=== PATIENT | female | born 1960 | race Caucasian/White ===

== ENCOUNTER 2018-09-28 19:00 | Emergency (ER) | payer OTHER ==
[2018-09-28 19:43] VITALS: TEMP 98.2
[2018-09-28] MEDS ORDERED: SODIUM CHLORIDE 0.9% 1,000 ML IV STA (20:19)
[2018-09-28] MEDS ORDERED: ONDANSETRON 4 MG/2 ML VIAL IVP STA (20:19)
[2018-09-28 20:56] LABS: Basophils # (A) 0.1 k/uL (0-0.2); Basophils % (A) 0 %; Eosinophils # (A) 0.2 k/uL (0-0.7); Eosinophils % (A) 2 %; HCT 42.9 % (34.0-46.0); HGB 14.5 gm/dL (11.4-16.0); Lymphocytes # (A) 4.4 k/uL (1.0-4.8); Lymphocytes % (A) 31 %; MCH 30.3 pg (25.0-35.0); MCHC 33.8 g/dL (31.0-37.0); MCV 89.4 fL (80.0-100.0); Mean Platelet Volume 7.7; Monocytes # (A) 0.5 k/uL (0-1.0); Monocytes % (A) 4 %; Neutrophils # (A) 8.8 k/uL (1.3-7.7); Neutrophils % (A) 62 %; Platelet Count 369 k/uL (150-450); RBC 4.79 m/uL (3.80-5.40); RDW 13.7 % (11.5-15.5); WBC 14.2 k/uL (3.8-10.6)
[2018-09-28 21:10] LABS: ALT 33 U/L (9-52); AST 21 U/L (14-36); African American GFR (CKD) >90 (>60 ml/min/1.73 sqM); Albumin 5.1 g/dL (3.5-5.0); Alkaline Phosphatase 158 U/L (38-126); Anion Gap 12 mmol/L; Blood Urea Nitrogen 7 mg/dL (7-17); Calcium 10.3 mg/dL (8.4-10.2); Carbon Dioxide 23 mmol/L (22-30); Chloride 109 mmol/L (98-107); Glucose 114 mg/dL (74-99); Lipase 43 U/L (23-300); Magnesium 2.4 mg/dL (1.6-2.3); Potassium 3.6 mmol/L (3.5-5.1); Sodium 144 mmol/L (137-145); Total Bilirubin 0.5 mg/dL (0.2-1.3); Total Protein 8.6 g/dL (6.3-8.2)
[2018-09-28] MEDS ORDERED: SODIUM CHLORIDE 0.9% 1,000 ML IV ONE (21:22)
--- NOTE | 2018-09-28 21:27 | ED ---
General Adult HPI - General Chief complaint: Nausea/Vomiting/Diarrhea Stated complaint: VOMITING, CAN'T SLEEP OR EAT, X 1 DAY Time Seen by Provider: 09/28/18 20:18 Source: patient, RN notes reviewed, old records reviewed Mode of arrival: ambulatory Limitations: no limitations - History of Present Illness Initial comments: 58-year-old female presenting for evaluation of nausea vomiting diarrhea. She's had symptoms for the past 2 days. She's been unable to keep down any food, she has been able to tolerate some liquids. She's also had diarrhea over this course. Denies any significant abdominal pain. Denies dysuria or hematuria. Denies fever or chills. She states she has been unable to rest secondary to nausea and vomiting. No chronic medical history. - Related Data Home Medications Medication Instructions Recorded Confirmed Metoprolol Tartrate [Lopressor] 25 mg PO DAILY 09/28/18 09/28/18 amLODIPine [Norvasc] 5 mg PO DAILY 09/28/18 09/28/18 Previous Rx's Medication Instructions Recorded Ondansetron Odt [Zofran Odt] 4 mg PO Q8HR PRN #10 tab 09/28/18 Allergies Allergy/AdvReac Type Severity Reaction Status Date / Time No Known Allergies Allergy Verified 09/28/18 21:05 Review of Systems ROS Statement: Those systems with pertinent positive or pertinent negative responses have been documented in the HPI. ROS Other: All systems not noted in ROS Statement are negative. Past Medical History Past Medical History: Hypertension History of Any Multi-Drug Resistant Organisms: None Reported Past Surgical History: No Surgical Hx Reported Past Psychological History: No Psychological Hx Reported Smoking Status: Current every day smoker Past Alcohol Use History: None Reported Past Drug Use History: None Reported General Exam Limitations: no limitations General appearance: alert, in no apparent distress Head exam: Present: atraumatic, normocephalic Eye exam: Present: normal appearance, PERRL ENT exam: Present: mucous membranes dry Neck exam: Present: normal inspection. Absent: tenderness, meningismus Respiratory exam: Present: normal lung sounds bilaterally. Absent: respiratory distress, wheezes Cardiovascular Exam: Present: regular rate, normal rhythm GI/Abdominal exam: Present: soft. Absent: distended, tenderness, guarding, rebound Extremities exam: Present: normal inspection, normal capillary refill. Absent: pedal edema Neurological exam: Present: alert, oriented X3, CN II-XII intact. Absent: motor sensory deficit Psychiatric exam: Present: normal affect, normal mood Skin exam: Present: warm, dry, intact. Absent: cyanosis, diaphoretic Course Vital Signs 09/28/18 19:40 Temperature 98.2 F Pulse Rate 108 H Respiratory 18 Rate Blood Pressure 149/98 O2 Sat by Pulse 95 Oximetry EKG Findings - EKG Comments: EKG Findings:: EKG: Normal sinus rhythm, Q waves in the inferior leads age undetermined inferior infarct, rate 99, ME interval 1:30, QRS duration 88, QTC 462, no ST segment elevation. Medical Decision Making - Medical Decision Making 58 -year-old female presenting with nausea vomiting diarrhea. No pain. Patient is afebrile with stable vitals. Chest nontender abdomen. She has leukocytosis white count 14.2, she is some signs of hemoconcentration and electrolyte abnormalities. She is given 2 L of IV hydration. She is very eager for discharge, she does not want to stay for any further treatment or evaluation. She will return with worsening or changing symptoms. - Lab Data Result diagrams: 09/28/18 20:45 09/28/18 20:45 Lab Results 09/28/18 09/28/18 09/28/18 Range/Units 20:45 20:45 20:45 WBC 14.2 H (3.8-10.6) k/uL RBC 4.79 (3.80-5.40) m/uL Hgb 14.5 (11.4-16.0) gm/dL Hct 42.9 (34.0-46.0) % MCV 89.4 (80.0-100.0) fL MCH 30.3 (25.0-35.0) pg MCHC 33.8 (31.0-37.0) g/dL RDW 13.7 (11.5-15.5) % Plt Count 369 (150-450) k/uL Neutrophils % 62 % Lymphocytes % 31 % Monocytes % 4 % Eosinophils % 2 % Basophils % 0 % Neutrophils # 8.8 H (1.3-7.7) k/uL Lymphocytes # 4.4 (1.0-4.8) k/uL Monocytes # 0.5 (0-1.0) k/uL Eosinophils # 0.2 (0-0.7) k/uL Basophils # 0.1 (0-0.2) k/uL Sodium 144 (137-145) mmol/L Potassium 3.6 (3.5-5.1) mmol/L Chloride 109 H (98-107) mmol/L Carbon Dioxide 23 (22-30) mmol/L Anion Gap 12 mmol/L BUN 7 (7-17) mg/dL Creatinine 0.56 (0.52-1.04) mg/dL Est GFR (CKD-EPI)AfAm >90 (>60 ml/min/1.73 sqM) Est GFR (CKD-EPI)NonAf >90 (>60 ml/min/1.73 sqM) Glucose 114 H (74-99) mg/dL Calcium 10.3 H (8.4-10.2) mg/dL Magnesium 2.4 H (1.6-2.3) mg/dL Total Bilirubin 0.5 (0.2-1.3) mg/dL AST 21 (14-36) U/L ALT 33 (9-52) U/L Alkaline Phosphatase 158 H (38-126) U/L Troponin I <0.012 (0.000-0.034) ng/mL Total Protein 8.6 H (6.3-8.2) g/dL Albumin 5.1 H (3.5-5.0) g/dL Lipase 43 (23-300) U/L Disposition Clinical Impression: Dehydration, Nausea vomiting and diarrhea Disposition: HOME SELF-CARE Instructions (If sedation given, give patient instructions): Acute Nausea and Vomiting (ED) Prescriptions: Ondansetron Odt [Zofran Odt] 4 mg PO Q8HR PRN #10 tab PRN Reason: Vomiting Is patient prescribed a controlled substance at d/c from ED?: No Referrals: Myke Mcclure MD [Primary Care Provider] - 1-2 days Time of Disposition: 22:07
[2018-09-28] MEDS ORDERED: LORazepam 1 MG TAB PO STA (22:05)
[2018-09-28 22:20] VITALS: BP 141/72; PULSE 98; RESP 16
== END 2018-09-28 22:18 | disposition home or self-care (01) ==
LOC: EC 19:00
DX: E86.0 Dehydration (principal); R11.2 Nausea with vomiting, unspecified; R19.7 Diarrhea, unspecified; D72.829 Elevated white blood cell count, unspecified; I10 Essential (primary) hypertension; F17.200 Nicotine dependence, unspecified, uncomplicated; Z79.899 Other long term (current) drug therapy
CPT/HCPCS: 36415; 80053; 83690; 83735; 84484; 85025; 99284; 96374; 96361; J2405

== ENCOUNTER 2022-03-15 10:40 | Inpatient (IN) | payer OTHER ==
[~2022-03-15 10:40] MED LIST: HEPARIN SODIUM,PORCINE 10,000 UNIT in SODIUM CHLORIDE 0.9% 1,000 ML IRRIGATION PRN; HEPARIN SODIUM,PORCINE 2,500 UNIT in SODIUM CHLORIDE 0.9% 250 ML IRRIGATION PRN
[2022-03-15] MEDS ORDERED: ASPIRIN 325 MG TAB PO STA (11:06)
[2022-03-15] MEDS ORDERED: NITROGLYCERIN SL TABS 0.4 MG TAB SUBLINGUAL STA (11:06)
--- NOTE | 2022-03-15 11:09 | ED ---
General Adult HPI - General Chief complaint: Chest Pain Stated complaint: Chest pain Time Seen by Provider: 03/15/22 11:05 Source: patient, RN notes reviewed Mode of arrival: ambulatory Limitations: no limitations - History of Present Illness Initial comments: Patient is a pleasant 61-year-old female presenting to the emergency department with concern with chest discomfort. Onset of symptoms was around 1 AM. Discomfort is currently rated 8/10. Patient states discomfort feels like an ache. There is discomfort in the back as well. Patient has had some associated nausea and vomiting. Patient has felt sweaty. No dyspnea. No history of similar symptoms previously. - Related Data Home Medications Medication Instructions Recorded Confirmed Metoprolol Tartrate [Lopressor] 25 mg PO DAILY 09/28/18 09/28/18 amLODIPine [Norvasc] 5 mg PO DAILY 09/28/18 09/28/18 Previous Rx's Medication Instructions Recorded Ondansetron Odt [Zofran Odt] 4 mg PO Q8HR PRN #10 tab 09/28/18 Allergies Allergy/AdvReac Type Severity Reaction Status Date / Time No Known Allergies Allergy Verified 03/15/22 10:44 Review of Systems ROS Statement: Those systems with pertinent positive or pertinent negative responses have been documented in the HPI. ROS Other: All systems not noted in ROS Statement are negative. Constitutional: Denies: fever Eyes: Denies: eye pain ENT: Denies: ear pain Respiratory: Denies: cough, dyspnea Cardiovascular: Reports: as per HPI, chest pain Endocrine: Denies: fatigue Gastrointestinal: Denies: abdominal pain Genitourinary: Denies: dysuria Musculoskeletal: Reports: as per HPI Skin: Denies: rash Neurological: Denies: weakness Past Medical History Past Medical History: Hypertension History of Any Multi-Drug Resistant Organisms: None Reported Past Surgical History: No Surgical Hx Reported Past Psychological History: No Psychological Hx Reported Smoking Status: Current every day smoker Past Alcohol Use History: None Reported Past Drug Use History: None Reported General Exam Limitations: no limitations General appearance: alert, in no apparent distress Head exam: Present: normocephalic Eye exam: Present: normal appearance Neck exam: Present: normal inspection Respiratory exam: Present: normal lung sounds bilaterally Cardiovascular Exam: Present: regular rate, normal rhythm, normal heart sounds Expanded Peripheral pulses: 2+: Radial (R), Radial (L), Femoral (R), Femoral (L), Posterior Tibialis (R), Posterior Tibialis (L), Dorsalis Pedis (R), Dorsalis Pedis (L) GI/Abdominal exam: Present: soft. Absent: tenderness Extremities exam: Present: normal inspection. Absent: pedal edema, calf tenderness Back exam: Present: normal inspection Neurological exam: Present: alert Psychiatric exam: Present: normal affect, normal mood Skin exam: Present: normal color Course Vital Signs 03/15/22 10:42 Temperature 98 F Pulse Rate 99 Respiratory 22 Rate Blood Pressure 187/108 O2 Sat by Pulse 98 Oximetry - Reevaluation(s) Reevaluation #1: 03/15/22 11:13 Patient reevaluated and unchanged. Nitro being given. Blood pressure will be rechecked. Debby with cardiology is present. STEMI alert was previously called. EKG Findings - EKG Results: EKG: interpreted by GLADYS (Sinus rhythm 89. Left axis. Septal Q waves with ST elevation V2 through V6. Previous EKG reviewed dated 05/15/16), sinus rhythm Medical Decision Making - Medical Decision Making Case discussed with Dr. Mcgrath, who will admit covering hospital call. Patient has gone to [facility]. - Lab Data Result diagrams: 03/15/22 11:07 Lab Results 03/15/22 Range/Units 11:07 WBC 15.5 H (3.8-10.6) k/uL RBC 4.93 (3.80-5.40) m/uL Hgb 15.2 (11.4-16.0) gm/dL Hct 44.0 (34.0-46.0) % MCV 89.3 (80.0-100.0) fL MCH 30.8 (25.0-35.0) pg MCHC 34.5 (31.0-37.0) g/dL RDW 12.7 (11.5-15.5) % Plt Count 325 (150-450) k/uL MPV 8.1 Neutrophils % 87 % Lymphocytes % 9 % Monocytes % 2 % Eosinophils % 1 % Basophils % 0 % Neutrophils # 13.5 H (1.3-7.7) k/uL Lymphocytes # 1.4 (1.0-4.8) k/uL Monocytes # 0.3 (0-1.0) k/uL Eosinophils # 0.2 (0-0.7) k/uL Basophils # 0.0 (0-0.2) k/uL - Radiology Data Interpreted by me: Chest x-ray is rotated. No mediastinal widening. Critical Care Time Critical Care Time: Yes Total Critical Care Time: 20 Disposition Clinical Impression: ST elevation myocardial infarction (STEMI) Disposition: ADMITTED IP TO THIS HOSP Condition: Critical Is patient prescribed a controlled substance at d/c from ED?: No Referrals: None,Stated [Primary Care Provider] - 1-2 days Time of Disposition: 11:21
[2022-03-15 11:13] LABS: Basophils % (A) 0 %; Eosinophils # (A) 0.2 k/uL (0-0.7); Eosinophils % (A) 1 %; HGB 15.2 gm/dL (11.4-16.0); Lymphocytes # (A) 1.4 k/uL (1.0-4.8); Lymphocytes % (A) 9 %; MCH 30.8 pg (25.0-35.0); MCHC 34.5 g/dL (31.0-37.0); MCV 89.3 fL (80.0-100.0); Mean Platelet Volume 8.1; Monocytes # (A) 0.3 k/uL (0-1.0); Monocytes % (A) 2 %; Neutrophils # (A) 13.5 k/uL (1.3-7.7); Neutrophils % (A) 87 %; Platelet Count 325 k/uL (150-450); RBC 4.93 m/uL (3.80-5.40); RDW 12.7 % (11.5-15.5); WBC 15.5 k/uL (3.8-10.6)
[2022-03-15] MEDS ORDERED: HEPARIN SODIUM 1,000 UN/ML (10ML VL) IV PRN ×2 (11:16→14:05)
[2022-03-15] MEDS ORDERED: HEPARIN SODIUM 1,000 UN/ML (10ML VL) IV ONE ×2 (11:16→14:05)
[2022-03-15] MEDS ORDERED: ONDANSETRON 4 MG/2 ML VIAL ONE ×3 (11:22→14:27)
[2022-03-15 11:23] LABS: ALT 52 U/L (4-34); African American GFR (CKD) >90 (>60 ml/min/1.73 sqM); Albumin 5.3 g/dL (3.5-5.0); Anion Gap 11 mmol/L; Blood Urea Nitrogen 11 mg/dL (7-17); Calcium 9.4 mg/dL (8.4-10.2); Carbon Dioxide 28 mmol/L (22-30); Chloride 100 mmol/L (98-107); Glucose 169 mg/dL (74-99); Non-African American GFR(CKD) >90 (>60 ml/min/1.73 sqM); Sodium 139 mmol/L (137-145); Total Bilirubin 0.8 mg/dL (0.2-1.3); Total Protein 9.2 g/dL (6.3-8.2)
[2022-03-15 11:24] LABS: AST 176 U/L (14-36); Magnesium 1.9 mg/dL (1.6-2.3); Potassium 4.3 mmol/L (3.5-5.1)
[2022-03-15 11:25] LABS: Alkaline Phosphatase 148 U/L (38-126); INR 0.9 (<1.2); Partial Thromboplastin Time 24.1 sec (22.0-30.0); Prothrombin Time 9.5 sec (9.0-12.0)
[2022-03-15] MEDS ORDERED: SODIUM CHLORIDE 0.9% 1,000 ML IV ONE (11:25)
[2022-03-15] MEDS ORDERED: ONDANSETRON 4 MG/2 ML VIAL IVP ONE ×4 (11:25→14:30)
[2022-03-15] MEDS ORDERED: MIDAZOLAM 2 MG/2 ML VIAL IVP ONE (11:26)
--- NOTE | 2022-03-15 11:26 | XR ---
EXAMINATION TYPE: XR chest 1V portable DATE OF EXAM: 03/15/2022 COMPARISON: NONE HISTORY: Chest pain TECHNIQUE: Single frontal view of the chest is obtained. FINDINGS: There is no focal air space opacity, pleural effusion, or pneumothorax seen. The cardiac silhouette size is within normal limits. The osseous structures are intact. Heart size normal. No o vert failure. Minimal linear changes left lung base typical of atelectasis secondary to reduced inspi ration. Arthropathy of the shoulders. IMPRESSION: No acute process.
[2022-03-15] MEDS ORDERED: LIDOCAINE 1% INJ 10MG/ML (30 ML VIAL-PF) SQ ONE ×2 (11:27)
[2022-03-15] MEDS ORDERED: HEPARIN SOD,PORK IN 0.45% NACL 25,000 UNIT in 0.45% NACL 1 250ML.BAG IV SCH ×2 (11:30→14:15)
[2022-03-15] MEDS ORDERED: HEPARIN SODIUM 1,000 UN/ML (10ML VL) ONE (11:33)
[2022-03-15] MEDS ORDERED: TICAGRELOR 90 MG TAB ONE (11:33)
[2022-03-15] MEDS ORDERED: HEPARIN SODIUM 1,000 UN/ML (10ML VL) IVP ONE (11:34)
[2022-03-15] MEDS ORDERED: TICAGRELOR 90 MG TAB PO ONE (11:39)
--- NOTE | 2022-03-15 11:39 | P.CRDCN ---
History of Present Illness History of present illness: This is a 61 year old female with a past medical history of hypertension and chronic tobacco use. Does not follow with a car repairer. We are consulted for STEMI. She presents to the ER with chest discomfort. She states she was sleeping and woke up with chest discomfort around 1AM, it woke her out of her sleep. It radiated to her back. She had associated nausea and vomiting. Describes it as ache/pressure. She denied any shortness of breath, diaphoresis, lightheadedness, dizziness, syncope or near syncope. She came to the ER for evaluation and EKG revealed ST elevation in anterior leads and inferior leads. She was taken urgently to the operations label clerk. She denies any prior history of CAD, ME, stroke, diabetes. She is a current every day smoker. Family history includes father had an ME unknown age. Pressure was elevated on arrival 187/108. DIAGNOSTICS * EKG reveals sinus rhythm, heart rate [address] elevated in leads V2-V6, and II, II and aVF. * Chest xray no acute cardiopulmonary process * Laboratory reviewed, WBC 15.5 hemoglobin 15.2, platelets 325, sodium 139, potassium 4.3, BUN 11, supreme 0.5, magnesium 1.9, AST 176, ALT 52 REVIEW OF SYSTEMS At the time of my exam: CONSTITUTIONAL: Denies fever or chills. CARDIOVASCULAR: + chest pain, Denies shortness of breath, orthopnea, PND or palpitations. RESPIRATORY: Denies cough. GASTROINTESTINAL: Denies abdominal pain, diarrhea, constipation, +nausea +vomiting. MUSCULOSKELETAL: Denies myalgias. NEUROLOGIC: Denies numbness, tingling, headacbe or weakness. ENDOCRINE: Denies fatigue, weight change, polydipsia or polyurina. GENITOURINARY: Denies burning, hematuria or urgency with micturation. HEMATOLOGIC: Denies history of anemia or bleeding. PHYSICAL EXAMINATION Vitals reviewed CONSTITUTIONAL: No apparent distress. HEENT: Head is normocephalic. Pupils are equal, round. Sclerae anicteric. Mucous membranes of the mouth are moist. No JVD. No carotid bruit. CHEST EXAMINATION: Lungs are clear to auscultation. HEART EXAMINATION: Regular rate and rhythm. S1, S2 heard. No murmurs, gallops or rub. ABDOMEN: Soft, nontender. EXTREMITIES: no lower extremity edema NEUROLOGIC EXAMINATION: Patient is awake, alert and oriented x3. ASSESSMENT STEMI History of hypertension Chronic tobacco use PLAN Patient urgently taken to operations label clerk for cardiac catheterization with Dr. Katz I have discussed the risks, benefits and alternative therapies for the above- mentioned procedure and for both sedation/analgesia as well as necessary blood product administration, if indicated, as they pertain to this patient. The patient has indicated understanding and acceptance of the risks and procedures discussed. Questions have been answered appropriately and she is agreeable to move forward with the above-stated procedure. Obtain 2D echocardiogram and doppler study to assess cardiac structure and function. Further recommendations based on above findings and patient course Nurse practitioner note has been reviewed by physician. Signing provider agrees with the documented findings, assessment, and plan of care. Past Medical History Past Medical History: Hypertension History of Any Multi-Drug Resistant Organisms: None Reported Past Surgical History: No Surgical Hx Reported Past Psychological History: No Psychological Hx Reported Smoking Status: Current every day smoker Past Alcohol Use History: None Reported Past Drug Use History: None Reported Medications and Allergies Home Medications Medication Instructions Recorded Confirmed Type Metoprolol Tartrate [Lopressor] 25 mg PO DAILY 09/28/18 09/28/18 History Ondansetron Odt [Zofran Odt] 4 mg PO Q8HR PRN #10 tab 09/28/18 Rx amLODIPine [Norvasc] 5 mg PO DAILY 09/28/18 09/28/18 History Allergies Allergy/AdvReac Type Severity Reaction Status Date / Time No Known Allergies Allergy Verified 03/15/22 10:44 Physical Exam Vitals: Vital Signs Temp Pulse Resp BP Pulse Ox 03/15/22 10:42 98 F 99 22 187/108 98 Intake and Output 03/14/22 03/15/22 03/15/22 22:59 06:59 14:59 Other: Weight 72.575 kg Results 03/15/22 11:07 03/15/22 11:07 Current Medications Generic Name Dose Route Start Last Admin Trade Name Freq PRN Reason Stop Dose Admin Nitroglycerin 0.4 mg 03/15/22 11:06 Nitroglycerin Sl Tabs 0.4 Mg Tab SUBLINGUAL Q5M PRN Chest Pain Intake and Output 03/14/22 03/15/22 03/15/22 22:59 06:59 14:59 Other: Weight 72.575 kg Patient Weight 03/16/22 06:59 Weight 72.575 kg
[2022-03-15] MEDS ORDERED: FUROSEMIDE 10 MG/ML 4 ML VIAL IVP ONE (11:50)
[2022-03-15] MEDS ORDERED: NITROGLYCERIN 1000MCG/10ML SYRINGE INTRAARTER ONE (11:51)
[2022-03-15] MEDS ORDERED: MORPHINE SULFATE 4 MG/ML SYRINGE ONE (11:52)
[2022-03-15] MEDS ORDERED: MORPHINE SULFATE 4 MG/ML SYRINGE IVP ONE ×2 (11:53→11:58)
[2022-03-15] MEDS ORDERED: FUROSEMIDE 10 MG/ML 4 ML VIAL ONE (11:54)
[2022-03-15] MEDS ORDERED: IOPAMIDOL-300 100ML BTL INJ ONE (12:03)
[2022-03-15] MEDS ORDERED: IOPAMIDOL-370 100ML BTL INJ ONE ×2 (12:03→14:46)
[2022-03-15] MEDS ORDERED: ATROPINE SULFATE 0.1 MG/ML 10ML SYRINGE IV PRN (12:12)
[2022-03-15] MEDS ORDERED: RX INFO: IV CONTRAST WAS GIVEN 1 EACH MISC MISCELLANE PRN ×2 (12:12→14:49)
[2022-03-15] MEDS ORDERED: MAG HYDROX/AL HYDROX/SIMETH 30 ML CUP PO PRN (12:12)
[2022-03-15] MEDS ORDERED: ZOLPIDEM 5 MG TAB PO PRN (12:12)
[2022-03-15] MEDS ORDERED: HYDROmorphone 0.5 MG/0.5 ML SYRINGE IVP ONE (12:14)
[2022-03-15] MEDS ORDERED: SODIUM CHLORIDE 0.9% 1,000 ML in EMPTY BAG 1 BAG IV SCH (12:15)
[2022-03-15 12:33] LABS: Glucose,Whole Blood 165 mg/dL (70-110)
[2022-03-15] MEDS: NITROGLYCERIN SL TABS 0.4 MG TAB SUBLINGUAL PRN ×2 (13:30→13:35)
[2022-03-15] MEDS: NITROGLYCERIN-D5W PMX 50 MG in DEXTROSE/WATER 1 250ML.BAG IV SCH (14:03)
--- NOTE | 2022-03-15 14:08 | P.HPIM ---
History of Present Illness H&P Date: 03/15/22 Chief Complaint: Chest/Back pain 61-year-old woman with a history of tobacco abuse, hypertension presented with back/chest discomfort. She describes a pressure as burning in nature and very intense. She has never had pain like this before. She has never had a heart attack before. She does not follow with a physician. She denies anginal symptoms. She denies fevers, chills, nausea, vomiting, palpitations, syncope, presyncope, cough, dyspnea, abdominal pain, constipation, diarrhea, dysuria, dyschezia, numbness/weakness of extremities. In the emergency room, patient was afebrile, 187/108, 99, 98% on room air. CBC showed leukocytosis to 15.5, otherwise unremarkable. Chemistries are unremarkable. Liver function tests show an AST of 176, ALT of 52, alkaline phos phatase of 148, total protein 9.2, albumin 5.3. Troponin was 10.9. Coags are unremarkable. EKG showed ST elevations in the septal leads with lateral reciprocal depression concerning for LAD occlusion. Chest x-ray did not show any acute process. Cardiology was consulted as well as STEMI code activated, patient taken to the Executive Legal Secretary and had drug alluding stent placed to the LAD with noted mild disease in the RCA. Patient was seen and examined by any following left heart catheterization continue to complain about back/chest pain similar to prior to the procedure. She reported improvement following the procedure and then return of her pain. Repeat EKG demonstrated ST elevations in septal leads with lateral reciprocal depression, as expected. Patient was given 2 sublingual nitroglycerin with no improvement in her pain, subsequent started on a nitroglycerin drip. All Systems reviewed and pertinent positives and negatives noted in HPI, all other symptoms are negative Gen: in no apparent distress, resting comfortably in bed Eyes: PERRL, no scleral injection or icterus HENT: normocephalic, atraumatic, good hearing acuity, moist mucous membranes Neck: no tracheal deviation, full range of motion Resp: good air exchange, breathing comfortably with no accessory muscle use, no tactile fremitus, clear to auscultation bilaterally CVS: good distal perfusion x 4, no pitting edema, regular rate and rhythm without murmurs GI: soft, NTTP, ND, no hepatosplenomegaly : no suprapubic tenderness, no CVAT, joseph catheter not present MSK: no clubbing, no cyanosis, no noted contractures of extremities Skin: no noted rashes, petechiae; temperature of skin is appropriate Neuro: moving all extremities without signs of weakness, CN II-XII intact Psych: cooperative, euthymic mood, insight and judgment intact Labs and imaging reviewed as above Assessment/plan: STEMI -Admit to inpatient, telemetry -Cardiology consult -Aspirin, Plavix -Statin -Beta tali -Patient is on nitro drip -TSH, A1c, lipid panel -Echocardiogram Hypertension Tobacco abuse -Home medications reviewed and reconciled -Cessation counseling advised -We'll require PCP referral on discharge with follow-up Patient is full code Past Medical History Past Medical History: Hypertension History of Any Multi-Drug Resistant Organisms: None Reported Past Surgical History: No Surgical Hx Reported Past Psychological History: No Psychological Hx Reported Smoking Status: Current every day smoker Past Alcohol Use History: None Reported Past Drug Use History: None Reported Medications and Allergies Home Medications Medication Instructions Recorded Confirmed Type Metoprolol Tartrate [Lopressor] 25 mg PO DAILY 09/28/18 09/28/18 History Ondansetron Odt [Zofran Odt] 4 mg PO Q8HR PRN #10 tab 09/28/18 Rx amLODIPine [Norvasc] 5 mg PO DAILY 09/28/18 09/28/18 History Allergies Allergy/AdvReac Type Severity Reaction Status Date / Time No Known Allergies Allergy Verified 03/15/22 10:44 Physical Exam Osteopathic Statement: *. No significant issues noted on an osteopathic structural exam other than those noted in the History and Physical/Consult. Vitals: Vital Signs Temp Pulse Resp BP Pulse Ox 03/15/22 12:45 98 8 L 172/118 94 L 03/15/22 12:31 102 H 14 174/116 03/15/22 10:42 98 F 99 22 187/108 98 Intake and Output 03/14/22 03/15/22 03/15/22 22:59 06:59 14:59 Intake Total 20 Balance 20 Intake: IV 20 Invasive Line 1 10 Invasive Line 2 10 Other: Weight 72.575 kg Results CBC & Chem 7: 03/15/22 11:07 03/15/22 11:07 Labs: Abnormal Lab Results - Last 24 Hours (Table) 03/15/22 03/15/22 03/15/22 Range/Units 11:07 11:07 11:07 WBC 15.5 H (3.8-10.6) k/uL Neutrophils # 13.5 H (1.3-7.7) k/uL Creatinine 0.50 L (0.52-1.04) mg/dL Glucose 169 H (74-99) mg/dL POC Glucose (mg/dL) (70-110) mg/dL AST 176 H (14-36) U/L ALT 52 H (4-34) U/L Alkaline Phosphatase 148 H (38-126) U/L Troponin I 10.900 H* (0.000-0.034) ng/mL Total Protein 9.2 H (6.3-8.2) g/dL Albumin 5.3 H (3.5-5.0) g/dL 03/15/22 Range/Units 12:30 WBC (3.8-10.6) k/uL Neutrophils # (1.3-7.7) k/uL Creatinine (0.52-1.04) mg/dL Glucose (74-99) mg/dL POC Glucose (mg/dL) 165 H (70-110) mg/dL AST (14-36) U/L ALT (4-34) U/L Alkaline Phosphatase (38-126) U/L Troponin I (0.000-0.034) ng/mL Total Protein (6.3-8.2) g/dL Albumin (3.5-5.0) g/dL
[2022-03-15] MEDS ORDERED: IV FLUID CONTINUATION 500 ML IV ONE (14:33)
[2022-03-15] MEDS ORDERED: VERAPAMIL 2.5 MG/ML 2 ML AMP ONE (14:35)
[2022-03-15] MEDS ORDERED: fentaNYL (PF) 50 MCG/ML 2 ML AMP ONE (14:36)
[2022-03-15] MEDS ORDERED: MIDAZOLAM 2 MG/2 ML VIAL IV ONE (14:37)
[2022-03-15] MEDS ORDERED: fentaNYL (PF) 50 MCG/ML 2 ML AMP IV ONE (14:37)
[2022-03-15] MEDS ORDERED: LIDOCAINE 1% INJ 10MG/ML (5 ML VIAL-PF) SQ ONE (14:39)
[2022-03-15] MEDS ORDERED: VERAPAMIL SYRINGE (5 MG/10 ML) INTRAARTER ONE (14:40)
[2022-03-15 15:06] VITALS: BMI 29.2
[2022-03-15] MEDS ORDERED: MORPHINE SULFATE 4 MG/ML SYRINGE IVP PRN (16:06)
[2022-03-15] MEDS: HYDROcodone/APAP 5-325MG 1 EACH TAB PO PRN ×2 (16:29→21:41)
[2022-03-15] MEDS: ONDANSETRON 4 MG/2 ML VIAL IVP PRN (16:36)
[2022-03-15] MEDS: MORPHINE SULFATE 2 MG/ML SYRINGE IVP PRN ×2 (17:14→20:26)
--- NOTE | 2022-03-15 18:44 | P.PCN ---
Date of Procedure: 03/15/22 Operative Findings: CARDIAC CATHETERIZATION AND PERCUTANEOUS CORONARY INTERVENTION PERFORMING PHYSICIAN: Jose Juan Katz MD, [facility] PROCEDURE PERFORMED: 1. Selective right and left coronary angiogram 2. Left heart catheterization 3. Successful stenting of mid LAD using 3.0 x 23 mm Xience ALICIA which with an excellent angiographic results 4. Selective right common femoral artery angiogram. Ultrasound-guided access of the right common femoral artery INDICATION: Anterior STEMI COMPLICATION: None APPROACH: Right common femoral artery LEVEL OF SEDATION: Moderate with the sedation time off 35 minutes PROCEDURE DESCRIPTION: After obtaining an informed consent the patient was brought to the cardiac laboratory tester. The right common femoral artery was cannulated using micropuncture technique, the micropuncture wire passed easily then I placed a 6-St Helenian sheath at the right common femoral artery. The right common femoral artery was cannulated using ultrasound guidance. Selective right and left coronary angiogram was performed using JR4 and JL4 catheters. Left heart catheterization was performed using 6-St Helenian pigtail catheter. After that I did intervene on the LAD. After that I did selective right common femoral artery angiogram. The procedure was completed without any complication SELECTIVE CORONARY ANGIOGRAM: The right coronary artery: Large caliber vessel and a dominant vessel. The RCA is diffusely diseased up to about 50% on tubular lesion in the midportion. Left main: Has mild disease only. Bifurcates into a LCx and LAD The left circumflex: Large caliber vessel nondominant vessel. The LCx appears to have mild disease only. It gives rise into a large OM branch which appeared to be angiographically normal. The left anterior descending artery: Large caliber vessel. The proximal LAD appeared to have mild disease only. The mid LAD after the bifurcation of a large septal alarm field technician is 100% occluded. The LAD proximally gives rise into a large diagonal branch which has tight lesion appeared to be in the range of 80%. HEMODYNAMICS: The LVEDP was about 20 mmHg was no significant gradient across aortic valve PCI OF THE LAD: Anticoagulation was initiated using heparin with continuous ACT monitoring. I did engage the left main using JL4 guiding catheter. I did cross the acute total occlusion of the LAD using a whisper wire. Subsequently I did balloon angioplasty initially using 2.5 mm balloon. After that I did deploy 3.0 x 23 mm stent where the stent was positioned under fluoroscopy guidance and deployed under its nominal pressure. A postoperative the stent using 3.5 mm noncompliant balloon. The final angiogram showed good angiographic results and the procedure was completed without any complications CONCLUSION: Acute anterior ST patient myocardial infarction Acute total occlusion of the mid LAD. Severe disease involving the first diago nal branch of the LAD which is a large reamer vessel. I did successful stenting of the LAD. Intermediate disease involving the mid RCA Elevated left-sided filling pressure POSTPROCEDURE MANAGEMENT: #1 dual antiplatelet therapy aspirin and Brilinta for 12 month #2 aggressive cholesterol control #3 consider medical treatment for the diagonal branch unless the patient remains symptomatic
--- NOTE | 2022-03-15 18:48 | P.PCN ---
Date of Procedure: 03/15/22 Operative Findings: CARDIAC CATHETERIZATION PERFORMING PHYSICIAN: Jose Juan Katz MD, RPVI PROCEDURE PERFORMED: 1. Selective left coronary angiogram INDICATION: This is a 61-year-old female patient was seen earlier today for acute anterior ST elevation myocardial infarction and she underwent an emergent heart catheterization and stenting of the LAD. Her symptoms have resolved completely. Because she started experiencing chest discomfort on the floor associated with ST segment deviation she was brought to cardiac laundry laborer for second look. COMPLICATION: None APPROACH: Right radial artery LEVEL OF SEDATION: Moderate with a sedation length of 12 minutes PROCEDURE DESCRIPTION: After obtaining an informed consent, the patient was brought to cardiac laundry laborer. Local anesthesia was performed using lidocaine subcutaneously. The right radial artery was cannulated using Seldinger technique, the guidewire passed easily, following that we advanced a 5-Indian sheath dilator assembly, the wire and dilator were removed and sheath was flushed. Following that, 2 mg of verapamil along with 5000 unit heparin were given. Selective left coronary angiogram using a 6-Indian JR4 and JL 3.5 catheters. The procedure was completed there was no complication. SELECTIVE CORONARY ANGIOGRAM: Left main: Has mild disease only. The left circumflex: Appears to have mild disease only. The left anterior descending artery: The stent in the mid LAD appeared to be patent. There is severe disease involving the large first diagonal branch. And there is also sluggish flow in the second diagonal branch in the middle of the stent. CONCLUSION: 1. Patent stent in the mid left anterior descending artery 2. Severe disease involving the first diagonal branch POSTPROCEDURE MANAGEMENT: STEVAN dual antiplatelet therapy and aggressive cholesterol control and risk factors modification
[2022-03-15] MEDS: METOPROLOL TARTRATE 25 MG TAB PO SCH (20:26)
[2022-03-15] MEDS: TICAGRELOR 90 MG TAB PO SCH (20:26)
[2022-03-15] MEDS ORDERED: ATORVASTATIN 80 MG TAB PO SCH (21:00)
[2022-03-16] MEDS: ONDANSETRON 4 MG/2 ML VIAL IVP PRN ×3 (00:45→17:02)
[2022-03-16 06:19] LABS: Basophils # (A) 0.1 k/uL (0-0.2); Basophils % (A) 0 %; Eosinophils % (A) 0 %; HCT 42.1 % (34.0-46.0); HGB 14.7 gm/dL (11.4-16.0); Lymphocytes # (A) 2.1 k/uL (1.0-4.8); Lymphocytes % (A) 12 %; MCH 31.5 pg (25.0-35.0); MCHC 34.8 g/dL (31.0-37.0); MCV 90.6 fL (80.0-100.0); Mean Platelet Volume 8.3; Monocytes # (A) 0.7 k/uL (0-1.0); Monocytes % (A) 4 %; Neutrophils # (A) 13.7 k/uL (1.3-7.7); Neutrophils % (A) 82 %; Platelet Count 274 k/uL (150-450); RBC 4.65 m/uL (3.80-5.40); RDW 13.3 % (11.5-15.5); WBC 16.7 k/uL (3.8-10.6)
[2022-03-16 06:21] LABS: Prothrombin Time 10.2 sec (9.0-12.0)
--- NOTE | 2022-03-16 07:22 | P.PN ---
Subjective Progress Note Date: 03/16/22 Principal diagnosis: Acute coronary syndrome The patient is a 61-year-old female patient with a smoking and hypertension and dyslipidemia who presented to the hospital with chest discomfort and was diagnosed with acute inferior ST elevation myocardial infarction. She underwent an emergent heart catheterization and that revealed occluded LAD in the midportion. She underwent successful stenting of the LAD with a good angiographic results and without complication from initially right groin approach. Subsequently the patient started having chest discomfort again after she came into the intensive care unit so she was brought back to the cardiac laborer car [facility] and underwent another angiogram which showed patent stent in the LAD was subtotally occluded diagonal which was treated medically. March 162021 The patient was seen this morning. She is asymptomatic be choosing with currently stable. The right groin and right radial site of soft and nontender and with no bruises. She continues to be on dual antiplatelet therapy and high intensity statin. She is also on beta tali. Liver function tests elevated. Echo is pending. Objective - Vital Signs Vital signs: Vital Signs Temp 99.1 F 03/16/22 04:00 Pulse 100 03/16/22 07:00 Resp 17 03/16/22 07:00 BP 123/79 03/16/22 07:00 Pulse Ox 93 L 03/16/22 07:00 FiO2 Intake & Output 03/15/22 03/16/22 03/16/22 18:59 06:59 18:59 Intake Total 828.150 770 Output Total 750 600 100 Balance 78.150 170 -100 Weight 72.575 kg 71.9 kg Intake: IV 577.5 770 Invasive Line 1 20 10 Invasive Line 2 20 10 Sodium Chloride 0.9% 1, 487.5 750 000 ml In Empty Bag 1 bag @ 75 mls/hr IV .[id number] [facility] Rx#:[id number] Intake, IV Titration 10.650 Amount Nitroglycerin-D5w Pmx 50 10.650 mg In Dextrose/Water 1 250ml.bag @ 5 MCG/MIN 1.5 mls/hr IV .Q24H [facility] Rx#: [id number] Oral 240 Output: Urine 750 600 100 Emesis 0 Other: Voiding Method External Catheter External Catheter # Bowel Movements 0 - Constitutional General appearance: Present: no acute distress - Respiratory Respiratory: bilateral: CTA - Cardiovascular Rhythm: regular - Labs CBC & Chem 7: 03/16/22 05:36 12/09/22 17:43 Labs: Abnormal Lab Results - Last 24 Hours (Table) 03/15/22 03/15/22 03/15/22 Range/Units 11:07 11:07 11:07 WBC 15.5 H (3.8-10.6) k/uL Neutrophils # 13.5 H (1.3-7.7) k/uL D-Dimer (<0.60) mg/L FEU Creatinine 0.50 L (0.52-1.04) mg/dL Glucose 169 H (74-99) mg/dL POC Glucose (mg/dL) (70-110) mg/dL AST 176 H (14-36) U/L ALT 52 H (4-34) U/L Alkaline Phosphatase 148 H (38-126) U/L Troponin I 10.900 H* (0.000-0.034) ng/mL Total Protein 9.2 H (6.3-8.2) g/dL Albumin 5.3 H (3.5-5.0) g/dL 03/15/22 03/15/22 03/16/22 Range/Units 11:13 12:30 05:36 WBC 16.7 H (3.8-10.6) k/uL Neutrophils # 13.7 H (1.3-7.7) k/uL D-Dimer 4.15 H (<0.60) mg/L FEU Creatinine (0.52-1.04) mg/dL Glucose (74-99) mg/dL POC Glucose (mg/dL) 165 H (70-110) mg/dL AST (14-36) U/L ALT (4-34) U/L Alkaline Phosphatase (38-126) U/L Troponin I (0.000-0.034) ng/mL Total Protein (6.3-8.2) g/dL Albumin (3.5-5.0) g/dL Assessment and Plan Assessment: Assessment #[address] elevation myocardial infarction #2 multiple comorbidities including hypertension and dyslipidemia and smoking Plan #1 continue the current medical regimen including dual antiplatelet therapy #2 decrease the dose of Lipitor 40 mg in the light of elevated liver function test #3 continue beta tali #4 start the patient on PHILIP inhibitor #5 follow-up on the echocardiogram #6 the patient can be transferred out of the intensive care unit
[2022-03-16 07:58] LABS: ALT 100 U/L (4-34); AST 491 U/L (14-36); African American GFR (CKD) >90 (>60 ml/min/1.73 sqM); Albumin 4.5 g/dL (3.5-5.0); Alkaline Phosphatase 124 U/L (38-126); Anion Gap 10 mmol/L; Blood Urea Nitrogen 12 mg/dL (7-17); Calcium 9.4 mg/dL (8.4-10.2); Carbon Dioxide 25 mmol/L (22-30); Chloride 106 mmol/L (98-107); Glucose 154 mg/dL (74-99); Non-African American GFR(CKD) >90 (>60 ml/min/1.73 sqM); Potassium 3.4 mmol/L (3.5-5.1); Sodium 141 mmol/L (137-145); Total Bilirubin 0.8 mg/dL (0.2-1.3); Total Protein 7.7 g/dL (6.3-8.2)
[2022-03-16] MEDS: HYDROcodone/APAP 5-325MG 1 EACH TAB PO PRN ×2 (09:09→20:20)
[2022-03-16] MEDS: ASPIRIN 81 MG PO SCH (09:10)
[2022-03-16] MEDS: amLODIPine 5 MG TAB PO SCH (09:10)
[2022-03-16] MEDS: TICAGRELOR 90 MG TAB PO SCH ×2 (09:10→20:20)
[2022-03-16] MEDS: METOPROLOL TARTRATE 25 MG TAB PO SCH ×2 (09:10→20:20)
[2022-03-16] MEDS ORDERED: POTASSIUM CHLORIDE ER 20 MEQ TAB.ER PO STA (09:47)
--- NOTE | 2022-03-16 09:55 | CA ---
Transthoracic Echo Report Name: Bere Whaley Age: 61 Gender: F : 1960 Exam Date: 03/15/2022 15:51 Exam Location: [facility] Ht (in): 62 Wt (lb): 160 Ordering Physician: Betsy Richard Attending/Referring Phys: Art Director Molly Garg RDCS Procedure CPT: Indications: stemi Cardiac Hx: Technical Quality: Technically difficult study Contrast 1: Lumason Total Dose (mL): 4 Contrast 2: Total Dose (mL): MEASUREMENTS (Male / Female) Normal Values 2D ECHO LV Diastolic Diameter PLAX 4.2 cm 4.2 - 5.9 / 3.9 - 5.3 cm LV Systolic Diameter PLAX 2.8 cm IVS Diastolic Thickness 1.3 cm 0.6 - 1.0 / 0.6 - 0.9 cm LVPW Diastolic Thickness 1.3 cm 0.6 - 1.0 / 0.6 - 0.9 cm LV Relative Wall Thickness 0.6 RV Internal Dim ED PLAX 2.6 cm LA Volume 29.9 cm??? 18 - 58 / 22 - 52 cm??? M-MODE Aortic Root Diameter MM 2.7 cm LA Systolic Diameter MM 2.9 cm LA Ao Ratio MM 1.1 AV Cusp Separation MM 1.7 cm DOPPLER AV Peak Velocity 126.7 cm/s AV Peak Gradient 6.4 mmHg AV Mean Velocity 94.8 cm/s AV Mean Gradient 3.8 mmHg AV Velocity Time Integral 23.6 cm LVOT Peak Velocity 127.3 cm/s LVOT Peak Gradient 6.5 mmHg MV Area PHT 4.0 cm??? Mitral E Point Velocity 32.8 cm/s Mitral A Point Velocity 102.0 cm/s Mitral E to A Ratio 0.3 MV Deceleration Time 189.7 ms MV E' Velocity 5.1 cm/s Mitral E to MV E' Ratio 6.4 TR Peak Velocity 241.7 cm/s TR Peak Gradient 23.4 mmHg Right Ventricular Systolic Press 27.8 mmHg FINDINGS Left Ventricle Moderately increased left ventricular wall thickness. Pilger hypokinetic. Apical anterior, apical inferior and apical septum hypokinesis. Decreased LV systolic function, EF estimated at 25-30 %. Right Ventricle Normal right ventricular size and function. Right ventricular systolic pressure within normal limits. Right Atrium Normal right atrial size. Left Atrium Normal left atrial size. Mitral Valve Structurally normal mitral valve. No mitral stenosis, regurgitation or prolapse. Aortic Valve No aortic valve stenosis or regurgitation. Tricuspid Valve Structurally normal tricuspid valve. Mild tricuspid regurgitation. Pulmonic Valve Trace pulmonic regurgitation. Pericardium No pericardial effusion. Aorta Normal size aortic root and proximal ascending aorta. CONCLUSIONS Severe LV dysfunction with EF between 25-30% Previewed by: Dr. Jose Juan Katz MD (Electronically Signed) Final Date: 16 March 2022 09:54
--- NOTE | 2022-03-16 12:41 | P.PN ---
Subjective Progress Note Date: 03/16/22 Pt is doing better, just mild back pain, no further chest discomfort. Has been up and walking around. Stepped down from ICU. Echo read is pending. Gen: in no apparent distress, resting comfortably in bed Eyes: PERRL, no scleral injection or icterus HENT: normocephalic, atraumatic, good hearing acuity, moist mucous membranes Neck: no tracheal deviation, full range of motion Resp: good air exchange, breathing comfortably with no accessory muscle use, no tactile fremitus, clear to auscultation bilaterally CVS: good distal perfusion x 4, no pitting edema, regular rate and rhythm without murmurs GI: soft, NTTP, ND, no hepatosplenomegaly : no suprapubic tenderness, no CVAT, joseph catheter not present MSK: no clubbing, no cyanosis, no noted contractures of extremities Skin: no noted rashes, petechiae; temperature of skin is appropriate Neuro: moving all extremities without signs of weakness, CN II-XII intact Psych: cooperative, euthymic mood, insight and judgment intact Labs and imaging reviewed as above Assessment/plan: STEMI -Admit to inpatient, telemetry -Cardiology consult -Aspirin, Plavix -Statin -Beta tali -Patient is on nitro drip -TSH, A1c, lipid panel -Echocardiogram, pending Hypertension Tobacco abuse -Home medications reviewed and reconciled -Cessation counseling advised -We'll require PCP referral on discharge with follow-up Patient is full code Objective - Vital Signs Vital signs: Vital Signs Temp 99.5 F 03/16/22 08:00 Pulse 98 03/16/22 09:00 Resp 12 03/16/22 09:00 BP 128/85 03/16/22 09:00 Pulse Ox 95 03/16/22 09:00 FiO2 Intake & Output 03/15/22 03/16/22 03/16/22 18:59 06:59 18:59 Intake Total 828.150 770 Output Total 750 600 200 Balance 78.150 170 -200 Weight 72.575 kg 71.9 kg Intake: IV 577.5 770 Invasive Line 1 20 10 Invasive Line 2 20 10 Sodium Chloride 0.9% 1, 487.5 750 000 ml In Empty Bag 1 bag @ 75 mls/hr IV .[id number] [facility] Rx#:[id number] Intake, IV Titration 10.650 Amount Nitroglycerin-D5w Pmx 50 10.650 mg In Dextrose/Water 1 250ml.bag @ 5 MCG/MIN 1.5 mls/hr IV .Q24H [facility] Rx#: [id number] Oral 240 Output: Urine 750 600 200 Emesis 0 Other: Voiding Method External Catheter External Catheter External Catheter # Voids 1 # Bowel Movements 0 - Labs CBC & Chem 7: 03/16/22 05:36 03/16/22 05:36 Labs: Abnormal Lab Results - Last 24 Hours (Table) 03/15/22 03/16/22 03/16/22 Range/Units 11:13 05:36 05:36 WBC 16.7 H (3.8-10.6) k/uL Neutrophils # 13.7 H (1.3-7.7) k/uL D-Dimer 4.15 H (<0.60) mg/L FEU Potassium 3.4 L (3.5-5.1) mmol/L Glucose 154 H (74-99) mg/dL AST 491 H (14-36) U/L ALT 100 H (4-34) U/L
[2022-03-16] MEDS ORDERED: ATORVASTATIN 40 MG TAB PO SCH (21:00)
[2022-03-16 22:57] VITALS: RESP 18
[2022-03-17] MEDS: ONDANSETRON 4 MG/2 ML VIAL IVP PRN ×2 (00:32→09:16)
--- NOTE | 2022-03-17 05:32 | P.PN ---
Subjective Progress Note Date: 03/17/22 Principal diagnosis: Acute coronary syndrome The patient is a 61-year-old female patient with a smoking and hypertension and dyslipidemia who presented to the hospital with chest discomfort and was diagnosed with acute inferior ST elevation myocardial infarction. She underwent an emergent heart catheterization and that revealed occluded LAD in the midportion. She underwent successful stenting of the LAD with a good angiographic results and without complication from initially right groin approach. Subsequently the patient started having chest discomfort again after she came into the intensive care unit so she was brought back to the cardiac laborer chemical processing and underwent another angiogram which showed patent stent in the LAD was subtotally occluded diagonal which was treated medically. March 162021 The patient was seen this morning. She is asymptomatic be choosing with currently stable. The right groin and right radial site of soft and nontender and with no bruises. She continues to be on dual antiplatelet therapy and high intensity statin. She is also on beta tali. Liver function tests elevated. Echo is pending. March 172021 The patient was seen this morning. She is asymptomatic. She is hemodynamically stable was marginally low blood pressure. No symptoms of chest pain or chest discomfort and no shortness of breath. She underwent an echo which revealed severe cardiomyopathy with EF around 35%. Currently she is on maximize medical treatment including dual antiplatelet therapy along with beta tali and PHILIP inhibitor. Liver function tests are elevated. I'm going to cut down the dose of Lipitor from 40-20 mg by mouth daily at bedtime. The patient would like to go home. She potentially can be discharged home later on today on dual antiplatelet therapy and anti-ischemic medication and I will follow-up with the patient next week in the office. Objective - Vital Signs Vital signs: Vital Signs Temp 98.6 F 03/17/22 04:00 Pulse 90 03/17/22 04:00 Resp 18 03/17/22 04:00 BP 104/60 03/17/22 04:00 Pulse Ox 96 03/17/22 04:00 FiO2 Intake & Output 03/16/22 03/16/22 03/17/22 06:59 18:59 06:59 Intake Total 770 720 Output Total 600 200 Balance 170 -200 720 Weight 71.9 kg Intake: IV 770 Invasive Line 1 10 Invasive Line 2 10 Sodium Chloride 0.9% 1, 750 000 ml In Empty Bag 1 bag @ 75 mls/hr IV .[id number] [facility] Rx#:[id number] Oral 720 Output: Urine 600 200 Other: Voiding Method External Catheter External Catheter External Catheter # Voids 1 2 - Constitutional General appearance: Present: no acute distress - Respiratory Respiratory: bilateral: CTA - Cardiovascular Rhythm: regular Heart sounds: normal: S1, S2 - Labs CBC & Chem 7: 03/16/22 05:36 03/16/22 05:36 Labs: Abnormal Lab Results - Last 24 Hours (Table) 03/16/22 03/16/22 Range/Units 05:36 05:36 WBC 16.7 H (3.8-10.6) k/uL Neutrophils # 13.7 H (1.3-7.7) k/uL Potassium 3.4 L (3.5-5.1) mmol/L Glucose 154 H (74-99) mg/dL AST 491 H (14-36) U/L ALT 100 H (4-34) U/L Assessment and Plan Assessment: Assessment #[address] elevation myocardial infarction #2 multiple comorbidities including hypertension and dyslipidemia and smoking Plan #1 continue the current medical regimen including dual antiplatelet therapy #2 decrease the dose of Lipitor from 40 mg by mouth daily at bedtime to 20 mg by mouth daily at bedtime #3 continue beta tali #4 continue PHILIP inhibitor #5 continue monitor the liver function tests probably as an outpatient #6 consider adding Aldactone as an outpatient The patient would like to go home.
[2022-03-17] MEDS: ASPIRIN 81 MG PO SCH (09:16)
[2022-03-17] MEDS: amLODIPine 5 MG TAB PO SCH (09:16)
[2022-03-17] MEDS: TICAGRELOR 90 MG TAB PO SCH (09:16)
[2022-03-17] MEDS: METOPROLOL TARTRATE 25 MG TAB PO SCH (09:16)
[2022-03-17 10:27] VITALS: BP 128/87; PULSE 106; TEMP 98
[2022-03-17] MEDS: NITROGLYCERIN-D5W PMX 50 MG in DEXTROSE/WATER 1 250ML.BAG IV SCH (11:04)
--- NOTE | 2022-03-17 12:18 | P.DS ---
Providers Date of admission: 03/15/22 11:22 Expected date of discharge: 03/17/22 Attending physician: Nixon Miles MD Consults: 03/15/22 11:22 Consult Physician Stat Consulting Provider: Jose Juan Katz Consult Reason/Comments: stemi Do you want consulting provider notified?: Yes 03/15/22 12:12 Consult Physician Routine Consulting Provider: [facility] Consult Reason/Comments: Post Interventional Patient Do you want consulting provider notified?: Already Contacted Primary care physician: Stated None Hospital Course: STEMI Ischemic Cardiomyopathy with EF 35% Hypertension Tobacco abuse 61-year-old woman with a history of tobacco abuse, hypertension presented with back/chest discomfort. In the emergency room, patient was afebrile, 187/108, 99, 98% on room air. CBC showed leukocytosis to 15.5, otherwise unremarkable. Chemistries are unremarkable. Liver function tests show an AST of 176, ALT of 52, alkaline phosphatase of 148, total protein 9.2, albumin 5.3. Troponin was 10.9. Coags are unremarkable. EKG showed ST elevations in the septal leads with lateral reciprocal depression concerning for LAD occlusion. Chest x-ray did not show any acute process. Cardiology was consulted as well as STEMI code activated, patient taken to the [facility] and had drug alluding stent placed to the LAD with noted mild disease in the RCA. Patient was seen and examined by any following left heart catheterization continue to complain about back/chest pain similar to prior to the procedure. She reported improvement following the procedure and then return of her pain. Repeat EKG demonstrated ST elevations in septal leads with lateral reciprocal depression, as expected. Patient was given 2 sublingual nitroglycerin with no improvement in her pain, subsequent started on a nitroglycerin drip. She was taken back to the [facility] where she was found to have a patent stent partially obstructing with diagonals. She recovered quickly, was stepped down from the ICU after 24 hours, discharged with the 48 hour raúl. Her echocardiogram did demonstrate card and myopathy with an ejection fraction of 35% and she was started on goal-directed medical therapy as appropriate. She'll follow up with primary care physician as well as cardiology. I spent 38 minutes coordinating this discharge, discharge date 03/17. Gen: in no apparent distress, resting comfortably in bed Eyes: PERRL, no scleral injection or icterus HENT: normocephalic, atraumatic, good hearing acuity, moist mucous membranes Neck: no tracheal deviation, full range of motion Resp: good air exchange, breathing comfortably with no accessory muscle use, no tactile fremitus, clear to auscultation bilaterally CVS: good distal perfusion x 4, no pitting edema, regular rate and rhythm w ithout murmurs GI: soft, NTTP, ND, no hepatosplenomegaly : no suprapubic tenderness, no CVAT, joseph catheter not present MSK: no clubbing, no cyanosis, no noted contractures of extremities Skin: no noted rashes, petechiae; temperature of skin is appropriate Neuro: moving all extremities without signs of weakness, CN II-XII intact Psych: cooperative, euthymic mood, insight and judgment intact Patient Condition at Discharge: Good Plan - Discharge Summary Discharge Rx Participant: No New Discharge Prescriptions: New Metoprolol Tartrate [Lopressor] 25 mg PO BID #60 tab Nitroglycerin Sl Tabs [Nitrostat] 0.4 mg SUBLINGUAL Q5M PRN #15 tab PRN Reason: Chest Pain amLODIPine [Norvasc] 5 mg PO DAILY #30 tab Aspirin 81 mg PO DAILY #30 tab Ticagrelor [Brilinta] 90 mg PO BID #60 tab Losartan [Cozaar] 12.5 mg PO DAILY #15 tab Atorvastatin [Lipitor] 20 mg PO HS #30 tab Discharge Medication List Aspirin 81 mg PO DAILY #30 tab 03/17/22 [Rx] Atorvastatin [Lipitor] 20 mg PO HS #30 tab 03/17/22 [Rx] Losartan [Cozaar] 12.5 mg PO DAILY #15 tab 03/17/22 [Rx] Metoprolol Tartrate [Lopressor] 25 mg PO BID #60 tab 03/17/22 [Rx] Nitroglycerin Sl Tabs [Nitrostat] 0.4 mg SUBLINGUAL Q5M PRN #15 tab 03/17/22 [Rx] Ticagrelor [Brilinta] 90 mg PO BID #60 tab 03/17/22 [Rx] amLODIPine [Norvasc] 5 mg PO DAILY #30 tab 03/17/22 [Rx] Follow up Appointment(s)/Referral(s): Jose Juan Katz MD [STAFF PHYSICIAN] - 1 Week None,Stated [Primary Care Provider] - 1-2 days Discharge Disposition: HOME SELF-CARE
[2022-03-17] MEDS ORDERED: ATORVASTATIN 20 MG TAB PO SCH (21:00)
== END 2022-03-17 13:15 | disposition home or self-care (01) | DRG 247 ==
LOC: EC 10:40 → 2SICU 11:22 → 3SCARD 03-16 10:05
PROVIDERS: ADMIT Internal Medicine; ATTEND Internal Medicine
PROC: B2111ZZ Fluoroscopy of Multiple Coronary Arteries using Low Osmolar Contrast (ICD-10-PCS; 2022-03-15)
PROC: B41F1ZZ Fluoroscopy of Right Lower Extremity Arteries using Low Osmolar Contrast (ICD-10-PCS; 2022-03-15)
PROC: B2101ZZ Fluoroscopy of Single Coronary Artery using Low Osmolar Contrast (ICD-10-PCS; 2022-03-15)
PROC: 027034Z Dilation of Coronary Artery, One Artery with Drug-eluting Intraluminal Device, Percutaneous Approach (ICD-10-PCS; principal; 2022-03-15 11:20)
PROC: 4A023N7 Measurement of Cardiac Sampling and Pressure, Left Heart, Percutaneous Approach (ICD-10-PCS; 2022-03-15 11:20)
DX: I21.09 ST elevation (STEMI) myocardial infarction involving other coronary artery of anterior wall (principal); J98.11 Atelectasis; I25.10 Atherosclerotic heart disease of native coronary artery without angina pectoris; I10 Essential (primary) hypertension; I07.1 Rheumatic tricuspid insufficiency; M13.812 Other specified arthritis, left shoulder; E78.5 Hyperlipidemia, unspecified; I25.5 Ischemic cardiomyopathy; M13.811 Other specified arthritis, right shoulder; F17.210 Nicotine dependence, cigarettes, uncomplicated; Z71.6 Tobacco abuse counseling; D72.829 Elevated white blood cell count, unspecified; Z79.899 Other long term (current) drug therapy; Z82.49 Family history of ischemic heart disease and other diseases of the circulatory system
CPT/HCPCS: 36415; 71045; 80053; 83735; 84132; 84484; 85025; 85379; 85610; 85730; 93005; 93306; 93454; 93458; 99285

== ENCOUNTER 2022-03-19 14:29 | Observation (INO) | payer OTHER ==
[2022-03-19] MEDS ORDERED: LORazepam 2 MG/ML INJ IV STA (15:08)
[2022-03-19] MEDS ORDERED: ASPIRIN 81 MG PO STA (15:09)
[2022-03-19] MEDS ORDERED: ONDANSETRON 4 MG/2 ML VIAL IVP STA (15:11)
--- NOTE | 2022-03-19 15:14 | ED ---
General Adult HPI - General Chief complaint: Arrhythmia/Palpitations Stated complaint: Not feeling well Time Seen by Provider: 03/19/22 15:00 Source: patient, family, RN notes reviewed, old records reviewed (Multiple previous EKGs reviewed from 2016 2021.) Mode of arrival: wheelchair Limitations: no limitations - History of Present Illness Initial comments: Patient is a pleasant 61-year-old female presenting to the emergency Department not feeling well. Patient was here less than a week ago with stenting. Patient denies any chest pain or shortness of breath. Patient admits to feeling anxious. Patient admits she is not sleeping well. Patient does have some nausea. No vomiting. Patient has had some loose stools/diarrhea. No abdominal pain. - Related Data Previous Rx's Medication Instructions Recorded Aspirin 81 mg PO DAILY #30 tab 03/17/22 Atorvastatin [Lipitor] 20 mg PO HS #30 tab 03/17/22 Losartan [Cozaar] 12.5 mg PO DAILY #15 tab 03/17/22 Metoprolol Tartrate [Lopressor] 25 mg PO BID #60 tab 03/17/22 Nitroglycerin Sl Tabs [Nitrostat] 0.4 mg SUBLINGUAL Q5M PRN #15 tab 03/17/22 Ondansetron [Zofran] 4 mg PO Q6H PRN #28 tab 03/17/22 Ticagrelor [Brilinta] 90 mg PO BID #60 tab 03/17/22 amLODIPine [Norvasc] 5 mg PO DAILY #30 tab 03/17/22 Allergies Allergy/AdvReac Type Severity Reaction Status Date / Time No Known Allergies Allergy Verified 03/19/22 16:37 Review of Systems ROS Statement: Those systems with pertinent positive or pertinent negative responses have been documented in the HPI. ROS Other: All systems not noted in ROS Statement are negative. Constitutional: Denies: fever Eyes: Denies: eye pain ENT: Denies: ear pain Respiratory: Denies: cough, dyspnea Cardiovascular: Denies: chest pain Endocrine: Denies: fatigue Gastrointestinal: Reports: nausea, diarrhea. Denies: abdominal pain, vomiting Genitourinary: Denies: dysuria Musculoskeletal: Denies: back pain Skin: Denies: rash Neurological: Denies: weakness Past Medical History Past Medical History: Coronary Artery Disease (CAD), Hypertension Additional Past Medical History / Comment(s): Patient states that she was seeing Dr. Mcclure but no longer has a primary care physician so she hasn't been getting her antihypertensives. History of Any Multi-Drug Resistant Organisms: None Reported Past Surgical History: Heart Catheterization, Heart Catheterization With Stent Past Psychological History: No Psychological Hx Reported Smoking Status: Current every day smoker Past Alcohol Use History: None Reported Past Drug Use History: None Reported General Exam Limitations: no limitations General appearance: alert, in no apparent distress Head exam: Present: normocephalic Eye exam: Present: normal appearance Neck exam: Present: normal inspection Respiratory exam: Present: normal lung sounds bilaterally Cardiovascular Exam: Present: regular rate, normal rhythm Expanded Peripheral pulses: 2+: Radial (R), Radial (L), Posterior Tibialis (R), Posterior Tibialis (L) GI/Abdominal exam: Present: soft. Absent: tenderness Extremities exam: Present: normal inspection. Absent: pedal edema, calf tenderness Neurological exam: Present: alert Psychiatric exam: Present: normal affect, normal mood Skin exam: Present: normal color Course Vital Signs 03/19/22 14:38 Temperature 97 F L Pulse Rate 96 Respiratory 16 Rate Blood Pressure 110/75 O2 Sat by Pulse 98 Oximetry - Reevaluation(s) Reevaluation #1: 03/19/22 15:12 Case was discussed with cardiology, Dr. Maldonado who believes EKG changes are likely due to evolution of previous myocardial infarction. 03/19/22 16:15 Repeat EKG shows sinus rhythm at 96. [place] 1:30. QRS 94. QT 332. QTC 386. Left axis. Inferior Q waves and septal Q waves with some underlying ST elevation. EKG was interpreted by myself Patient reevaluated and symptom-free following Ativan. EKG Findings - EKG Comments: EKG Findings:: Sinus tachycardia 100. [place] 128. QRS 94. QT 324. QTC 391. [place] indeterminate. Septal Q waves. Borderline ST change inferior and septal. - EKG Results: EKG: interpreted by [facility] Medical Decision Making - Medical Decision Making Patient again reevaluated. Patient is symptom-free following Ativan. Case was also discussed with practitioner James, covering with Dr. lopez, who will admit for hospital observation call. - Lab Data Result diagrams: 03/19/22 15:03 03/19/22 15:03 Lab Results 12/03/19/22 03/19/22 Range/Units 15:03 15:03 15:03 WBC 14.1 H (3.8-10.6) k/uL RBC 4.63 (3.80-5.40) m/uL Hgb 14.6 (11.4-16.0) gm/dL Hct 41.1 (34.0-46.0) % MCV 88.8 (80.0-100.0) fL MCH 31.6 (25.0-35.0) pg MCHC 35.6 (31.0-37.0) g/dL RDW 12.7 (11.5-15.5) % Plt Count 337 (150-450) k/uL MPV 8.3 Neutrophils % 76 % Lymphocytes % 18 % Monocytes % 4 % Eosinophils % 1 % Basophils % 0 % Neutrophils # 10.7 H (1.3-7.7) k/uL Lymphocytes # 2.5 (1.0-4.8) k/uL Monocytes # 0.6 (0-1.0) k/uL Eosinophils # 0.1 (0-0.7) k/uL Basophils # 0.0 (0-0.2) k/uL PT 9.7 (9.0-12.0) sec INR 0.9 (<1.2) APTT 25.2 (22.0-30.0) sec Sodium 141 (137-145) mmol/L Potassium 3.7 (3.5-5.1) mmol/L Chloride 101 (98-107) mmol/L Carbon Dioxide 29 (22-30) mmol/L Anion Gap 11 mmol/L BUN 17 (7-17) mg/dL Creatinine 0.68 (0.52-1.04) mg/dL Est GFR (CKD-EPI)AfAm >90 (>60 ml/min/1.73 sqM) Est GFR (CKD-EPI)NonAf >90 (>60 ml/min/1.73 sqM) Glucose 124 H (74-99) mg/dL Calcium 9.5 (8.4-10.2) mg/dL Magnesium 2.4 H (1.6-2.3) mg/dL Total Bilirubin 0.7 (0.2-1.3) mg/dL AST 45 H (14-36) U/L ALT 39 H (4-34) U/L Alkaline Phosphatase 119 (38-126) U/L Troponin I (0.000-0.034) ng/mL Total Protein 8.0 (6.3-8.2) g/dL Albumin 4.7 (3.5-5.0) g/dL TSH 3.200 (0.465-4.680) mIU/L Free T4 1.17 (0.78-2.19) ng/dL Free T3 pg/mL 3.2 (2.8-5.3) pg/ml 03/19/22 Range/Units 15:03 WBC (3.8-10.6) k/uL RBC (3.80-5.40) m/uL Hgb (11.4-16.0) gm/dL Hct (34.0-46.0) % MCV (80.0-100.0) fL MCH (25.0-35.0) pg MCHC (31.0-37.0) g/dL RDW (11.5-15.5) % Plt Count (150-450) k/uL MPV Neutrophils % % Lymphocytes % % Monocytes % % Eosinophils % % Basophils % % Neutrophils # (1.3-7.7) k/uL Lymphocytes # (1.0-4.8) k/uL Monocytes # (0-1.0) k/uL Eosinophils # (0-0.7) k/uL Basophils # (0-0.2) k/uL PT (9.0-12.0) sec INR (<1.2) APTT (22.0-30.0) sec Sodium (137-145) mmol/L Potassium (3.5-5.1) mmol/L Chloride (98-107) mmol/L Carbon Dioxide (22-30) mmol/L Anion Gap mmol/L BUN (7-17) mg/dL Creatinine (0.52-1.04) mg/dL Est GFR (CKD-EPI)AfAm (>60 ml/min/1.73 sqM) Est GFR (CKD-EPI)NonAf (>60 ml/min/1.73 sqM) Glucose (74-99) mg/dL Calcium (8.4-10.2) mg/dL Magnesium (1.6-2.3) mg/dL Total Bilirubin (0.2-1.3) mg/dL AST (14-36) U/L ALT (4-34) U/L Alkaline Phosphatase (38-126) U/L Troponin I 14.100 H* (0.000-0.034) ng/mL Total Protein (6.3-8.2) g/dL Albumin (3.5-5.0) g/dL TSH (0.465-4.680) mIU/L Free T4 (0.78-2.19) ng/dL Free T3 pg/mL (2.8-5.3) pg/ml Disposition Clinical Impression: Nonspecific abnormal finding on cardiac evaluation Disposition: ADMITTED IP TO THIS HOSP Is patient prescribed a controlled substance at d/c from ED?: No Referrals: None,Stated [REFERRING] - 1-2 days Time of Disposition: 16:44
[2022-03-19 15:20] LABS: Basophils % (A) 0 %; Eosinophils # (A) 0.1 k/uL (0-0.7); Eosinophils % (A) 1 %; HCT 41.1 % (34.0-46.0); HGB 14.6 gm/dL (11.4-16.0); Lymphocytes # (A) 2.5 k/uL (1.0-4.8); Lymphocytes % (A) 18 %; MCH 31.6 pg (25.0-35.0); MCHC 35.6 g/dL (31.0-37.0); MCV 88.8 fL (80.0-100.0); Mean Platelet Volume 8.3; Monocytes # (A) 0.6 k/uL (0-1.0); Monocytes % (A) 4 %; Neutrophils # (A) 10.7 k/uL (1.3-7.7); Neutrophils % (A) 76 %; Platelet Count 337 k/uL (150-450); RBC 4.63 m/uL (3.80-5.40); RDW 12.7 % (11.5-15.5); WBC 14.1 k/uL (3.8-10.6)
[2022-03-19 15:35] LABS: INR 0.9 (<1.2); Partial Thromboplastin Time 25.2 sec (22.0-30.0); Prothrombin Time 9.7 sec (9.0-12.0)
--- NOTE | 2022-03-19 15:35 | XR ---
EXAMINATION TYPE: XR chest 2V DATE OF EXAM: 03/19/2022 COMPARISON: Chest x-ray March 15, 2022 HISTORY: Dysrhythmia. TECHNIQUE: Frontal and lateral views of the chest are obtained. FINDINGS: There is no suspicious focal air space opacity, pleural effusion, or pneumothorax seen. T he cardiac silhouette size is stable and within normal limits. Underlying S-shaped scoliosis is redem onstrated. Overlying EKG leads on current study. IMPRESSION: No acute process.
[2022-03-19 15:43] LABS: ALT 39 U/L (4-34); AST 45 U/L (14-36); African American GFR (CKD) >90 (>60 ml/min/1.73 sqM); Albumin 4.7 g/dL (3.5-5.0); Alkaline Phosphatase 119 U/L (38-126); Anion Gap 11 mmol/L; Blood Urea Nitrogen 17 mg/dL (7-17); Calcium 9.5 mg/dL (8.4-10.2); Carbon Dioxide 29 mmol/L (22-30); Chloride 101 mmol/L (98-107); Glucose 124 mg/dL (74-99); Magnesium 2.4 mg/dL (1.6-2.3); Non-African American GFR(CKD) >90 (>60 ml/min/1.73 sqM); Potassium 3.7 mmol/L (3.5-5.1); Sodium 141 mmol/L (137-145); Total Bilirubin 0.7 mg/dL (0.2-1.3)
[2022-03-19 15:59] LABS: T4, Free (Free Thyroxine) 1.17 ng/dL (0.78-2.19)
[2022-03-19] MEDS ORDERED: NITROGLYCERIN SL TABS 0.4 MG TAB SUBLINGUAL PRN (16:44)
[2022-03-19] MEDS ORDERED: ONDANSETRON 4 MG TAB PO PRN (16:45)
--- NOTE | 2022-03-19 17:43 | P.DS ---
Providers Date of admission: 03/19/22 16:44 Expected date of discharge: 03/19/22 Attending physician: Ericka Marsh, DO Consults: 03/19/22 16:44 Consult Physician Urgent Consulting Provider: Vernon Maldonado Consult Reason/Comments: cardiac eval and tx Do you want consulting provider notified?: Yes Primary care physician: [place] Hospital Course: Patient is a 61-year-old woman with a history of nicotine dependence, hypertension presenting with multiple different symptoms. She claims that ever since going home after her recent admission she has been experiencing anxiety, unable to eat, nausea, vomiting, and diarrhea. She denies any new chest pain, shortness of breath, abdominal pain, or urinary complaints. The patient was recently admitted for ST elevation [place], had PCI with ALICIA to the LAD, mild disease noted in RCA. Hospitalization was complicated by further chest pain, repeat EKG showing ST elevation in the septal leads with lateral reciprocal depressions. 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 Her symptoms then resolved. Her echocardiogram showed LVEF of 35%. She is unsure if her symptoms are related to her medications or if she has another medical problem. In the ED, her vital signs were stable. Laboratory workup showed leukocytosis of 14.1, mild transaminitis, troponin of 14.1. Cardiology was called by the ED, recommending heparin drip at the moment. EKG shows Q waves in inferior, anteriolateral leads. Chest x-ray shows no acute process. Patient seen and examined at bedside. Pertinent positives and negatives as discussed in HPI, a complete review of systems was performed and all other systems are negative. Vital signs reviewed General: nontoxic, no distress, appears at stated age Derm: warm, dry Head: atraumatic, normocephalic, symmetric Eyes: EOMI, no lid lag, anicteric sclera, pupils equal round reactive to light ENT: Nose and ears atraumatic Neck: No thyromegaly, supple Mouth: no lip lesion, mucus membranes moist Cardiovascular: S1S2 reg, no murmur, no edema Lungs: clear to auscultation bilateral, no rhonchi, no rales, no wheeze, no accessory muscle use Abdominal: soft, nontender to palpation, no guarding, no appreciable organomegaly Ext: no gross muscle atrophy, muscle strength muscle strength 5 out of 5 in all 4 extremities, no contractures Neuro: CN II-XII grossly intact Psych: Alert, oriented, appropriate affect Assessment/Plan: Nausea/ vomiting Diarrhea Generalized weakness/fatigue Elevated troponin Coronary artery disease with recent stent to LAD Ischemic cardiomyopathy Hypertension Leukocytosis, likely reactive -Recent symptoms could be related to medication, ischemic cardiomyopathy, or somatization -continue to trend troponin -Cardiology consult -telemetry -continue DAPT, statin -continue home meds -consider SSRI if no other organic causes identified for her symptoms Nicotine dependence -Counseled regarding cessation -Only smoked one cigarette since going home The patient is admitted with an anticipated less than 2 midnight stay for evaluation of anxiety/elevated troponin. Surrogate decision-maker: Daughter CODE STATUS: Full code DVT prophylaxis: Subcu heparin Anticipated discharge date: 1- [address]: Home A total of 50 minutes was spent on the care of this complex patient more than 50% of the time was spent in counseling and care coordination. Patient Condition at Discharge: Stable Plan - Discharge Summary New Discharge Prescriptions: No Action Metoprolol Tartrate [Lopressor] 25 mg PO BID #60 tab Nitroglycerin Sl Tabs [Nitrostat] 0.4 mg SUBLINGUAL Q5M PRN #15 tab PRN Reason: Chest Pain amLODIPine [Norvasc] 5 mg PO DAILY #30 tab Ondansetron [Zofran] 4 mg PO Q6H PRN #28 tab PRN Reason: Nausea Aspirin 81 mg PO DAILY #30 tab Ticagrelor [Brilinta] 90 mg PO BID #60 tab Losartan [Cozaar] 12.5 mg PO DAILY #15 tab Atorvastatin [Lipitor] 20 mg PO HS #30 tab Discharge Medication List Aspirin 81 mg PO DAILY #30 tab 03/17/22 [Rx] Atorvastatin [Lipitor] 20 mg PO HS #30 tab 03/17/22 [Rx] Losartan [Cozaar] 12.5 mg PO DAILY #15 tab 03/17/22 [Rx] Metoprolol Tartrate [Lopressor] 25 mg PO BID #60 tab 03/17/22 [Rx] Nitroglycerin Sl Tabs [Nitrostat] 0.4 mg SUBLINGUAL Q5M PRN #15 tab 03/17/22 [Rx] Ondansetron [Zofran] 4 mg PO Q6H PRN #28 tab 03/17/22 [Rx] Ticagrelor [Brilinta] 90 mg PO BID #60 tab 03/17/22 [Rx] amLODIPine [Norvasc] 5 mg PO DAILY #30 tab 03/17/22 [Rx] Follow up Appointment(s)/Referral(s): None,Stated [REFERRING] - 1-2 days
--- NOTE | 2022-03-19 17:44 | P.HPIM ---
History of Present Illness H&P Date: 03/19/22 Chief Complaint: nausea/vomitting Patient is a 61-year-old woman with a history of nicotine dependence, hypertension presenting with multiple different symptoms. She claims that ever since going home after her recent admission she has been experiencing anxiety, unable to eat, nausea, vomiting, and diarrhea. She denies any new chest pain, shortness of breath, abdominal pain, or urinary complaints. Her nausea and vomiting only occurs with solid food. She denies any chest pain with the vomiting. Her diarrhea is persistent throughout the day, noted loose stools. She denies any fevers, chills. The patient was recently admitted for ST elevation [place], had PCI with ALICIA to the LAD, mild disease noted in RCA. Hospitalization was complicated by further c hest pain, repeat EKG showing ST elevation in the septal leads with lateral reciprocal depressions. 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 Her symptoms then resolved. Her echocardiogram showed LVEF of 35%. She is unsure if her symptoms are related to her medications or if she has another medical problem. In the ED, her vital signs were stable. Laboratory workup showed leukocytosis of 14.1, mild transaminitis, troponin of 14.1. Cardiology was called by the ED, recommending heparin drip at the moment. EKG shows Q waves in inferior, anteriolateral leads. Chest x-ray shows no acute process. Patient seen and examined at bedside. Pertinent positives and negatives as discussed in HPI, a complete review of systems was performed and all other systems are negative. Vital signs reviewed General: nontoxic, no distress, appears at stated age Derm: warm, dry Head: atraumatic, normocephalic, symmetric Eyes: EOMI, no lid lag, anicteric sclera, pupils equal round reactive to light ENT: Nose and ears atraumatic Neck: No thyromegaly, supple Mouth: no lip lesion, mucus membranes moist Cardiovascular: S1S2 reg, no murmur, no edema Lungs: clear to auscultation bilateral, no rhonchi, no rales, no wheeze, no accessory muscle use Abdominal: soft, nontender to palpation, no guarding, no appreciable organomegaly Ext: no gross muscle atrophy, muscle strength muscle strength 5 out of 5 in all 4 extremities, no contractures Neuro: CN II-XII grossly intact Psych: Alert, oriented, appropriate affect Assessment/Plan: Nausea/ vomiting Diarrhea Generalized weakness/fatigue Elevated troponin Coronary artery disease with recent stent to LAD Ischemic cardiomyopathy Hypertension Leukocytosis, likely reactive -Recent symptoms could be related to medication, ischemic cardiomyopathy, or somatization -continue to trend troponin -Cardiology consult -telemetry -continue DAPT, statin -continue home meds -consider SSRI if no other organic causes identified for her symptoms Nicotine dependence -Counseled regarding cessation -Only smoked one cigarette since going home The patient is admitted with an anticipated less than 2 midnight stay for evaluation of anxiety/elevated troponin. Surrogate decision-maker: Daughter CODE STATUS: Full code DVT prophylaxis: Subcu heparin Anticipated discharge date: 1- [address]: Home A total of 50 minutes was spent on the care of this complex patient more than 50% of the time was spent in counseling and care coordination. Past Medical History Past Medical History: Coronary Artery Disease (CAD), Hypertension Additional Past Medical History / Comment(s): Patient states that she was seeing Dr. Mcclure but no longer has a primary care physician so she hasn't been getting her antihypertensives. History of Any Multi-Drug Resistant Organisms: None Reported Past Surgical History: Heart Catheterization, Heart Catheterization With Stent Past Psychological History: No Psychological Hx Reported Smoking Status: Current every day smoker Past Alcohol Use History: None Reported Past Drug Use History: None Reported Medications and Allergies Home Medications Medication Instructions Recorded Confirmed Type Aspirin 81 mg PO DAILY #30 tab 03/17/22 03/19/22 Rx Atorvastatin [Lipitor] 20 mg PO HS #30 tab 03/17/22 03/19/22 Rx Losartan [Cozaar] 12.5 mg PO DAILY #15 tab 03/17/22 03/19/22 Rx Metoprolol Tartrate [Lopressor] 25 mg PO BID #60 tab 03/17/22 03/19/22 Rx Nitroglycerin Sl Tabs [Nitrostat] 0.4 mg SUBLINGUAL Q5M PRN #15 tab 03/17/22 03/19/22 Rx Ondansetron [Zofran] 4 mg PO Q6H PRN #28 tab 03/17/22 03/19/22 Rx Ticagrelor [Brilinta] 90 mg PO BID #60 tab 03/17/22 03/19/22 Rx amLODIPine [Norvasc] 5 mg PO DAILY #30 tab 03/17/22 03/19/22 Rx Allergies Allergy/AdvReac Type Severity Reaction Status Date / Time No Known Allergies Allergy Verified 03/19/22 16:37 Physical Exam Vitals: Vital Signs Temp Pulse Resp BP Pulse Ox 03/19/22 14:38 97 F L 96 16 110/75 98 Intake and Output 03/19/22 03/19/22 03/19/22 06:59 14:59 22:59 Other: Weight 68.039 kg Results CBC & Chem 7: 03/19/22 15:03 03/19/22 15:03 Labs: Abnormal Lab Results - Last 24 Hours (Table) 03/19/22 03/19/22 03/19/22 Range/Units 15:03 15:03 15:03 WBC 14.1 H (3.8-10.6) k/uL Neutrophils # 10.7 H (1.3-7.7) k/uL Glucose 124 H (74-99) mg/dL Magnesium 2.4 H (1.6-2.3) mg/dL AST 45 H (14-36) U/L ALT 39 H (4-34) U/L Troponin I 14.100 H* (0.000-0.034) ng/mL
[2022-03-19] MEDS ORDERED: ATORVASTATIN 20 MG TAB PO SCH (21:00)
[2022-03-19] MEDS: METOPROLOL TARTRATE 25 MG TAB PO SCH (21:05)
[2022-03-19] MEDS: TICAGRELOR 90 MG TAB PO SCH (21:05)
[2022-03-19] MEDS ORDERED: ZOLPIDEM 5 MG TAB PO SCH (21:45)
[2022-03-20 00:22] VITALS: TEMP 98.5
[2022-03-20] MEDS ORDERED: HEPARIN SODIUM,PORCINE 2,500 UNIT in SODIUM CHLORIDE 0.9% 250 ML IRRIGATION PRN (07:00)
[2022-03-20] MEDS ORDERED: HEPARIN SODIUM,PORCINE 10,000 UNIT in SODIUM CHLORIDE 0.9% 1,000 ML IRRIGATION PRN (07:00)
[2022-03-20 07:50] LABS: Basophils % (A) 0 %; Eosinophils # (A) 0.1 k/uL (0-0.7); Eosinophils % (A) 1 %; HCT 37.4 % (34.0-46.0); HGB 13.1 gm/dL (11.4-16.0); Lymphocytes # (A) 1.8 k/uL (1.0-4.8); Lymphocytes % (A) 17 %; MCH 31.2 pg (25.0-35.0); MCHC 34.9 g/dL (31.0-37.0); MCV 89.3 fL (80.0-100.0); Mean Platelet Volume 8.3; Monocytes # (A) 0.5 k/uL (0-1.0); Monocytes % (A) 5 %; Neutrophils # (A) 7.7 k/uL (1.3-7.7); Neutrophils % (A) 75 %; Platelet Count 271 k/uL (150-450); RBC 4.18 m/uL (3.80-5.40); RDW 12.7 % (11.5-15.5); WBC 10.3 k/uL (3.8-10.6)
[2022-03-20] MEDS: METOPROLOL TARTRATE 25 MG TAB PO SCH ×2 (07:58→20:46)
[2022-03-20] MEDS: ASPIRIN 81 MG PO SCH (07:58)
[2022-03-20] MEDS: LOSARTAN 25 MG TAB PO SCH (07:58)
[2022-03-20] MEDS: TICAGRELOR 90 MG TAB PO SCH ×2 (07:58→20:46)
[2022-03-20 08:17] LABS: African American GFR (CKD) >90 (>60 ml/min/1.73 sqM); Anion Gap 9 mmol/L; Blood Urea Nitrogen 17 mg/dL (7-17); Carbon Dioxide 24 mmol/L (22-30); Chloride 103 mmol/L (98-107); Glucose 134 mg/dL (74-99); Magnesium 2.3 mg/dL (1.6-2.3); Non-African American GFR(CKD) >90 (>60 ml/min/1.73 sqM); Potassium 3.4 mmol/L (3.5-5.1); Sodium 136 mmol/L (137-145)
[2022-03-20] MEDS ORDERED: amLODIPine 5 MG TAB PO SCH (09:00)
[2022-03-20] MEDS ORDERED: NITROGLYCERIN SL TABS 0.4 MG TAB SUBLINGUAL PRN (09:42)
[2022-03-20] MEDS ORDERED: ALPRAZolam 0.25 MG TAB PO PRN (09:42)
[2022-03-20] MEDS ORDERED: ATORVASTATIN 80 MG TAB PO STA (09:42)
[2022-03-20] MEDS ORDERED: ASPIRIN 325 MG TAB PO STA (09:42)
[2022-03-20] MEDS: ALPRAZolam 0.5 MG TAB PO PRN ×2 (09:55→20:46)
--- NOTE | 2022-03-20 10:13 | P.CRDCN ---
History of Present Illness Consult date: 03/20/22 Requesting physician: Ericka Marsh Reason for Consult (text): cardiac evaluation Chief complaint: insomnia, loose stool, anxiety History of present illness: Pleasant 61-year-old female patient with a recent history of ST elevation PR just last week. She was seen by Dr. Mora at that time and underwent cardiac catheterization which showed a 50% lesion in the RCA severe disease in the large first diagonal branch and 100% mid LAD lesion. She subsequently underwent stenting of the LAD. Because of recurrent chest discomfort during that admission she was taken back to the [employer] and found to have patent stent in the LAD and severe disease in the large first diagonal branch. During that admission troponin was drawn times one and came back at 10.9. She presented this admission with complaints of inability to sleep, nausea, loose and anxiety. She is otherwise denied any complaints of chest discomfort, shortness of breath, orthopnea, PND or edema. She's had no palpitations. She's had no dizziness, lightheadedness or syncope. On admission troponin remains elevated and increasing with levels of 14.1, 14.3 and 15.6. Chest x-ray showed no acute process. EKG on admission showed evidence of inferior and anterolateral PR of indeterminate age. Renal function is normal. Thyroid function is normal. She is currently on amlodipine 5 mg by mouth daily, aspirin 81 mg by mouth daily, atorvastatin 20 mg by mouth daily at bedtime, losartan 12.5 mg by mouth daily, metoprolol titrate 25 mg by mouth twice a day and Brilinta 90 mg by mouth twice a day. Blood pressure is running on the low side. She ate only a few bites of breakfast this morning and developed some nausea. Past Medical History Past Medical History: Coronary Artery Disease (CAD), Hypertension Additional Past Medical History / Comment(s): Patient states that she was seeing Dr. Mcclure but no longer has a primary care physician so she hasn't been getting her antihypertensives. History of Any Multi-Drug Resistant Organisms: None Reported Past Surgical History: Heart Catheterization, Heart Catheterization With Stent Date of Last Stent Placement:: 03/14/22 Past Psychological History: No Psychological Hx Reported Smoking Status: Current every day smoker Past Alcohol Use History: None Reported Past Drug Use History: None Reported Medications and Allergies Home Medications Medication Instructions Recorded Confirmed Type Aspirin 81 mg PO DAILY #30 tab 03/17/22 03/19/22 Rx Atorvastatin [Lipitor] 20 mg PO HS #30 tab 03/17/22 03/19/22 Rx Losartan [Cozaar] 12.5 mg PO DAILY #15 tab 03/17/22 03/19/22 Rx Metoprolol Tartrate [Lopressor] 25 mg PO BID #60 tab 03/17/22 03/19/22 Rx Nitroglycerin Sl Tabs [Nitrostat] 0.4 mg SUBLINGUAL Q5M PRN #15 tab 03/17/22 03/19/22 Rx Ondansetron [Zofran] 4 mg PO Q6H PRN #28 tab 03/17/22 03/19/22 Rx Ticagrelor [Brilinta] 90 mg PO BID #60 tab 03/17/22 03/19/22 Rx amLODIPine [Norvasc] 5 mg PO DAILY #30 tab 03/17/22 03/19/22 Rx Allergies Allergy/AdvReac Type Severity Reaction Status Date / Time No Known Allergies Allergy Verified 03/19/22 16:37 Physical Exam Vitals: Vital Signs Temp Pulse Pulse Resp BP BP Pulse Ox 03/20/22 07:44 96 03/20/22 04:00 61 18 98/68 96 03/20/22 02:00 68 18 03/19/22 20:00 98.5 F 68 18 104/62 94 L 03/19/22 14:38 97 F L 96 16 110/75 98 Intake and Output 03/19/22 03/20/22 03/20/22 22:59 06:59 14:59 Intake Total 240 240 Balance 240 240 Intake: Oral 240 240 Other: # Voids 1 2 # Bowel Movements 1 Weight 68.039 kg PHYSICAL EXAMINATION: This is a 61-year-old female in no apparent distress at the time of my examination. HEENT: Head is atraumatic, normocephalic. Pupils are equal, round. Sclerae anicteric. Conjunctivae are clear. Mucous membranes of the mouth are moist. Neck is supple. There is no elevated jugular venous pressure. No carotid bruit is heard. CHEST EXAMINATION: Clear to auscultation bilaterally. No wheezes rales or rhonchi. Respirations even and nonlabored. HEART EXAMINATION: Heart regular, positive S1 and S2. No S3. No S4. No clicks, rubs or murmurs. ABDOMEN: Soft, nontender. Bowel sounds are heard. No organomegaly noted. EXTREMITIES: 2+ peripheral pulses with no evidence of peripheral edema and no calf tenderness noted. NEUROLOGIC EXAMINATION: Patient is awake, alert and oriented x3. Results 03/20/22 07:06 03/20/22 07:06 Cardiac Enzymes 03/19/22 03/19/22 03/19/22 Range/Units 15:03 15:03 17:35 AST 45 H (14-36) U/L Troponin I 14.100 H* 14.300 H* (0.000-0.034) ng/mL 03/19/22 Range/Units 21:00 AST (14-36) U/L Troponin I 15.600 H* (0.000-0.034) ng/mL Coagulation 03/19/22 Range/Units 15:03 PT 9.7 (9.0-12.0) sec APTT 25.2 (22.0-30.0) sec CBC 03/19/22 03/20/22 Range/Units 15:03 07:06 WBC 14.1 H 10.3 (3.8-10.6) k/uL RBC 4.63 4.18 (3.80-5.40) m/uL Hgb 14.6 13.1 (11.4-16.0) gm/dL Hct 41.1 37.4 (34.0-46.0) % Plt Count 337 271 (150-450) k/uL Comprehensive Metabolic Panel 03/19/22 03/20/22 Range/Units 15:03 07:06 Sodium 141 136 L (137-145) mmol/L Potassium 3.7 3.4 L (3.5-5.1) mmol/L Chloride 101 103 (98-107) mmol/L Carbon Dioxide 29 24 (22-30) mmol/L BUN 17 17 (7-17) mg/dL Creatinine 0.68 0.66 (0.52-1.04) mg/dL Glucose 124 H 134 H (74-99) mg/dL Calcium 9.5 9.0 (8.4-10.2) mg/dL AST 45 H (14-36) U/L ALT 39 H (4-34) U/L Alkaline Phosphatase 119 (38-126) U/L Total Protein 8.0 (6.3-8.2) g/dL Albumin 4.7 (3.5-5.0) g/dL Current Medications Generic Name Dose Route Start Last Admin Trade Name Michela PRN Reason Stop Dose Admin Amlodipine Besylate 5 mg 03/20/22 09:00 03/20/22 07:58 Amlodipine 5 Mg Tab PO 5 mg DAILY BROOK Administration Aspirin 81 mg 03/20/22 09:00 03/20/22 07:58 Aspirin 81 Mg PO 81 mg DAILY BROOK Administration Atorvastatin Calcium 20 mg 03/19/22 21:00 03/19/22 21:05 Atorvastatin 20 Mg Tab PO 20 mg HS BROOK Administration Losartan Potassium 12.5 mg 03/20/22 09:00 03/20/22 07:58 Losartan 25 Mg Tab PO 12.5 mg DAILY BROOK Administration Metoprolol Tartrate 25 mg 03/19/22 21:00 03/20/22 07:58 Metoprolol Tartrate 25 Mg Tab PO 25 mg BID BROOK Administration Nitroglycerin 0.4 mg 03/19/22 16:44 Nitroglycerin Sl Tabs 0.4 Mg Tab SUBLINGUAL Q5M PRN Chest Pain Ondansetron HCl 4 mg 03/19/22 16:45 Ondansetron 4 Mg Tab PO Q6H PRN Nausea Sodium Chloride 10 ml 03/19/22 21:00 03/20/22 07:59 Sodium Chloride 0.9% Flush 10 Ml Syringe IV 10 ml BID BROOK Administration Ticagrelor 90 mg 03/19/22 21:00 03/20/22 07:58 Ticagrelor 90 Mg Tab PO 90 mg BID BROOK Administration Intake and Output 03/19/22 03/20/22 03/20/22 22:59 06:59 14:59 Intake Total 240 240 Balance 240 240 Intake: Oral 240 240 Other: # Voids 1 2 # Bowel Movements 1 Weight 68.039 kg 03/20/22 07:06 03/20/22 07:06 Assessment and Plan Assessment: #[address] elevation PR status post PCI of the LAD with further increase in troponins #2 ischemic cardiomyopathy with ejection fraction of 25-30% on recent echocardiogram #3 hypertension with blood pressure running on the low side #4 nicotine dependence, patient is working on quitting #5 hyperlipidemia Plan: From cardiology's perspective we will discontinue the amlodipine. It appears the patient is only on 20 mg of atorvastatin due to elevated AST and ALTs on previous admission. We will check a hemoglobin A1c as the patient's glucose levels have been elevated and she is not been diagnosed with diabetes. We will add Farxiga. Will schedule the patient to undergo cardiac catheterization today. The risks, benefits and alternative therapies for the above-mentioned procedure and for both sedation/analgesia as well as necessary blood product administration, if indicated, have been discussed with the patient. The patient has indicated understanding and acceptance of the risks and procedures discussed. Questions have been answered appropriately and HE/SHE is agreeable to move forward with the above stated procedure. IRISH MOSS OPERATOR note has been reviewed, I agree with a documented findings and plan of care. Patient was seen and examined.
[2022-03-20] MEDS: DAPAGLIFLOZIN PROPANEDIOL 10 MG TABLET PO SCH (10:44)
[2022-03-20] MEDS ORDERED: HEPARIN SODIUM 1,000 UN/ML (10ML VL) ONE (12:31)
[2022-03-20] MEDS ORDERED: VERAPAMIL 2.5 MG/ML 2 ML AMP ONE (12:31)
[2022-03-20] MEDS ORDERED: MIDAZOLAM 2 MG/2 ML VIAL IV ONE (12:34)
[2022-03-20] MEDS ORDERED: LIDOCAINE 1% INJ 10MG/ML (5 ML VIAL-PF) SQ ONE (12:35)
[2022-03-20] MEDS ORDERED: HEPARIN SODIUM 1,000 UN/ML (10ML VL) IV ONE (12:38)
[2022-03-20] MEDS ORDERED: IOPAMIDOL-370 125ML BTL INJ ONE (12:40)
--- NOTE | 2022-03-20 14:36 | P.PCN ---
Date of Procedure: 03/20/22 Operative Findings: CARDIAC CATHETERIZATION PERFORMING PHYSICIAN: Jose Juan Katz MD, RPVI PROCEDURE PERFORMED: 1. Selective right and left coronary angiogram 2. Left heart catheterization INDICATION: This is a very pleasant 61-year-old female patient with a significant history of smoking who presented to the hospital a few days ago with anterior ST elevation myocardial infarction. At that point she underwent an emergent heart catheterization and she was found to have occluded LAD. She underwent successful stenting of the mid LAD. There was a pinch on a medium size diagonal branch in the middle of the stent with a sluggish flow in its. The patient was discharged over the weekend in stable medical condition. She presented back to the hospital complaining of abdominal discomfort as well as nonspecific symptoms. The EKG showed concerning finding for acute ischemia. Her troponin was trending up as well. In the light of that a heart catheterization was advised to assess the patency of the LAD stent. COMPLICATION: None APPROACH: Right radial artery LEVEL OF SEDATION: Moderate with a sedation length of 12 minutes PROCEDURE DESCRIPTION: After obtaining an informed consent, the patient was brought to cardiac cardiac cath lab technologist. Local anesthesia was performed using lidocaine subcutaneously. The right radial artery was cannulated using Seldinger technique, the guidewire passed easily, following that we advanced a 5-Andorran sheath dilator assembly, the wire and dilator were removed and sheath was flushed. Following that, 2 mg of verapamil along with 5000 unit heparin were given. Selective right and left coronary angiogram using a 6-Andorran JR4 and JL 3.5 catheters. Following that we did left heart catheterization using 6-Andorran pigtail catheter. The procedure was completed there was no complication. SELECTIVE CORONARY ANGIOGRAM: The right coronary artery: Large caliber vessel and dominant vessel. The RCA proximally has mild disease only. The mid RCA has long tubular lesion appears to be in the range of 50-60%. The RCA distally appeared to be angiographically normal and bifurcates into PDA and PLV branches. Left main: The left main is angiographically normal. Bifurcates into a LCx and LAD The left circumflex: Large caliber vessel nondominant vessel. The LCx proximally has mild disease only. It gives rises into the first OM branch which has mild disease only. The circumflex continue after that as a small-caliber vessel in the AV groove The left anterior descending artery: Large caliber vessel. The LAD proximally appeared to have mild disease only. It gives rises into a large diagonal branch which has a lesion appeared to be in the range of 60-70%. The LAD in the midportion is a stented and the stent is patent was STEVAN-3 flow. There is a sluggish flow in a medium size diagonal branch. The LAD distally appears to have mild disease only. HEMODYNAMICS: The LVEDP was about 8 mmHg was no significant gradient across aortic valve CONCLUSION: 1. Patent stent in the mid LAD was STEVAN-3 flow. Intermediate disease involving the first diagonal branch. 2. Intermediate disease involving the mid right coronary artery 3. Low left-sided filling pressure POSTPROCEDURE MANAGEMENT: Giving the above anatomy and the patency of the stent in the LAD I would advise continue dual antiplatelet therapy with aggressive cholesterol control risk factors modification and follow-up with the patient.
--- NOTE | 2022-03-20 17:10 | P.PN ---
Subjective Progress Note Date: 03/20/22 (delayed charting seen at 0910) Patient is a 61-year-old woman with a systolic cardiomyopathy and ejection fraction 20-25% recent ST segment elevated myocardial infarction requiring cath 2 with stent placement, nicotine dependence, hypertension presenting with multiple different symptoms since stent placement.. The patient was recently admitted for ST elevation OR, had PCI with ALICIA to the LAD, mild disease noted in RCA. Hospitalization was complicated by further chest pain, repeat EKG showing ST elevation in the septal leads with lateral reciprocal depressions. 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 Her symptoms then resolved. Her echocardiogram showed LVEF of 35%. On arrival to the ER her vital signs within normal limits. Laboratory analysis was remarkable for white blood cell count of 14.1, glucose 124, magnesium 2.4, AST 45, ALT 39, and elevated troponin at 14.1. With concerns for her elevated troponin and symptoms she is admitted for further monitoring. Seen and examined at bedside. She denies any chest pain, shortness of breath, lightheadedness, dizziness. She does complain of anxiety, she is unable to sleep she wakes up nervous that she forgot to take her pills or medications appropriately. She also reports that she is having diarrhea almost every time she eats. She states that it initially was solid stools however now it is mostly liquid. She reports that there is no abdominal cramping associated with this. She reports that she has had similar episodes with anxiety prior she does not want to start new long-term anxiety medications. She does not want to add any additional medications in general. We discussed trying alternative treatments for her anxiety such as breathing exercises, yoga, and talk therapy. Daughter present at bedside. All questions answered General: Nontoxic, no distress, appears at stated age Derm: warm, dry Head: atraumatic, normocephalic, symmetric Eyes: EOMI, no lid lag, anicteric sclera Mouth: no lip lesion, mucus membranes moist Cardiovascular: S1S2 reg, no murmur, positive posterior tibial pulse bilateral, Lungs: CTA bilateral, no rhonchi, no rales , no accessory muscle use Abdominal: soft, nontender to palpation, no guarding, no appreciable organomegaly Ext: no gross muscle atrophy, no edema, no contractures Neuro: CN II-XI grossly intact, no focal neuro deficits Psych: Alert, oriented, appropriate affect Assessment/plan: Elevated troponin Recent ST segment elevated myocardial infarction -Cardiology recommendations, plan is for cardiac cath today Anxiety -Breathing exercises, yoga, and behavioral therapy -Patient does not want to start on medications Diarrhea -Trial of lactobacillus on discharge Anticipate home in a.m. once cleared by cardiology. Active Medications Generic Name Dose Route Start Last Admin Trade Name Freq PRN Reason Stop Dose Admin Alprazolam 0.25 mg 03/20/22 09:42 Alprazolam 0.25 Mg Tab PO Q6HR PRN Mild Anxiety Alprazolam 0.5 mg 03/20/22 09:42 03/20/22 09:55 Alprazolam 0.5 Mg Tab PO 0.5 mg Q6HR PRN Administration Moderate Anxiety Aspirin 81 mg 03/20/22 09:00 03/20/22 07:58 Aspirin 81 Mg PO 81 mg DAILY BROOK Administration Atorvastatin Calcium 20 mg 03/20/22 21:00 Atorvastatin 20 Mg Tab PO HS BROOK Dapagliflozin 10 mg 03/20/22 11:00 03/20/22 10:44 Dapagliflozin Propanediol 10 Mg Tablet PO 10 mg DAILY BROOK Administration Heparin Sodium (Porcine) 10, 1,001 mls @ 999 mls/hr 03/20/22 07:00 000 unit/ Sodium Chloride IRRIGATION 03/20/22 23:00 ONCE PRN INTRA-OP Heparin Sodium (Porcine) 2,500 250.5 mls @ 250 mls/hr 03/20/22 07:00 unit/ Sodium Chloride IRRIGATION 03/20/22 23:00 ONCE PRN INTRA-OP Losartan Potassium 12.5 mg 03/20/22 09:00 03/20/22 07:58 Losartan 25 Mg Tab PO 12.5 mg DAILY BROOK Administration Metoprolol Tartrate 25 mg 03/19/22 21:00 03/20/22 07:58 Metoprolol Tartrate 25 Mg Tab PO 25 mg BID BROOK Administration Nitroglycerin 0.4 mg 03/19/22 16:44 Nitroglycerin Sl Tabs 0.4 Mg Tab SUBLINGUAL Q5M PRN Chest Pain Nitroglycerin 0.4 mg 03/20/22 09:42 Nitroglycerin Sl Tabs 0.4 Mg Tab SUBLINGUAL Q5M PRN Chest Pain Ondansetron HCl 4 mg 03/19/22 16:45 Ondansetron 4 Mg Tab PO Q6H PRN Nausea Sodium Chloride 10 ml 03/19/22 21:00 03/20/22 07:59 Sodium Chloride 0.9% Flush 10 Ml Syringe IV 10 ml BID BROOK Administration Ticagrelor 90 mg 03/19/22 21:00 03/20/22 07:58 Ticagrelor 90 Mg Tab PO 90 mg BID BROOK Administration Objective - Vital Signs Vital signs: Vital Signs Temp 98.5 F 03/20/22 07:55 Pulse 89 03/20/22 16:00 Resp 17 03/20/22 16:00 BP 103/73 03/20/22 16:00 Pulse Ox 97 03/20/22 16:00 FiO2 Intake & Output 03/19/22 03/20/22 03/20/22 18:59 06:59 18:59 Intake Total 480 Balance 480 Weight 68.039 kg Intake: Oral 480 Other: # Voids 2 2 # Bowel Movements 1 - Labs CBC & Chem 7: 03/20/22 07:06 03/20/22 07:06 Labs: Abnormal Lab Results - Last 24 Hours (Table) 03/19/22 03/19/22 03/20/22 Range/Units 17:35 21:00 07:06 Sodium 136 L (137-145) mmol/L Potassium 3.4 L (3.5-5.1) mmol/L Glucose 134 H (74-99) mg/dL Troponin I 14.300 H* 15.600 H* (0.000-0.034) ng/mL
[2022-03-20 17:31] LABS: Chol/HDL Ratio 4.63 Ratio; LDL Cholesterol,Calculated 80.9 mg/dL (0.0-131.0)
[2022-03-20] MEDS ORDERED: ATORVASTATIN 20 MG TAB PO SCH ×2 (21:00)
[2022-03-21 00:08] VITALS: BP 98/60; PULSE 62; RESP 16
[2022-03-21] MEDS: ASPIRIN 81 MG PO SCH (08:07)
[2022-03-21] MEDS: METOPROLOL TARTRATE 25 MG TAB PO SCH (08:07)
[2022-03-21] MEDS: DAPAGLIFLOZIN PROPANEDIOL 10 MG TABLET PO SCH (08:07)
[2022-03-21] MEDS: TICAGRELOR 90 MG TAB PO SCH (08:08)
[2022-03-21] MEDS: LOSARTAN 25 MG TAB PO SCH (08:08)
[2022-03-21] MEDS ORDERED: EZETIMIBE 10 MG TAB PO SCH (09:00)
--- NOTE | 2022-03-21 09:08 | P.PN ---
Subjective Progress Note Date: 03/21/22 PROGRESS NOTE The patient is a 61-year-old female with a known history of coronary disease, status post stenting of the LAD who presented with diarrhea, anxiety not feeling well had troponin elevation going up slightly and underwent repeat cardiac catheterization yesterday, there was no evidence of stent thrombosis. She's feeling well today. Her breathing is stable. She denies any dizziness or palpitation. She is in sinus mechanism. Medications: Cozaar 12-1/2 mg daily, Lopressor 25 mg twice a day, aspirin once a day, Lipitor 20 mg daily,Brilinta 90 mg twice a day,Farxiga 10 mg qd, Zetia 10 mg daily PHYSICAL EXAMINATION: Blood pressure 103/60 heart rate 60 LUNGS: Clear to auscultation HEART: Regular rate and rhythm, S1, S2. No S3. No systolic murmur ABDOMEN: Soft, nontender, no organomegaly EXTREMETIES: No edema, right radial pulse intact IMPRESSION: 1. Status post stenting of the LAD with no evidence of stent thrombosis 2. Ischemic cardiomyopathy 3. Prior history of smoking 4. Hyperlipidemia PLAN: 1. Increase physical activity 2. Continue present therapy 3. Discharged home today 4. And follow-up with Dr. Katz next week Objective - Vital Signs Vital signs: Vital Signs Temp 98.5 F 03/20/22 20:00 Pulse 62 03/21/22 02:00 Resp 16 03/21/22 02:00 BP 98/60 03/21/22 00:06 Pulse Ox 97 03/21/22 07:30 FiO2 Intake & Output 03/20/22 03/21/22 03/21/22 18:59 06:59 18:59 Intake Total 720 Balance 720 Intake: Oral 720 Other: # Voids 2 1 - Labs CBC & Chem 7: 03/20/22 07:06 03/20/22 07:06 Labs: Abnormal Lab Results - Last 24 Hours (Table) 03/20/22 Range/Units 07:06 Triglycerides 215.00 H (0.00-149.00) mg/dL VLDL Cholesterol, Calc 43.00 H (5.00-40.00) mg/dL HDL Cholesterol 34.10 L (40.00-60.00) mg/dL
--- NOTE | 2022-03-21 14:13 | P.DS ---
Providers Date of admission: 03/19/22 16:44 Expected date of discharge: 03/21/22 Attending physician: Ericka Marsh, Consults: 03/19/22 16:44 Consult Physician Urgent Consulting Provider: Vernon Maldonado Consult Reason/Comments: cardiac eval and tx Do you want consulting provider notified?: Yes Primary care physician: Diandra Stevens Hospital Course: Discharge Diagnosis: Elevated troponin Recent ST segment elevated myocardial infarction Ischemic cardiomyopathy with ejection fraction 25% Dyslipidemia Anxiety Diarrhea, likely related to pills Hospital Course: Patient is a 61-year-old woman with a systolic cardiomyopathy and ejection fraction 25-30% recent ST segment elevated myocardial infarction requiring cath 2 with stent placement, nicotine dependence, hypertension presenting with multiple different symptoms since stent placement. The patient was recently admitted for ST elevation IA, had PCI with ALICIA to the LAD, mild disease noted in RCA. Hospitalization was complicated by further chest pain, repeat EKG showing ST elevation in the septal leads with lateral reciprocal depressions. 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 Her symptoms then resolved. Her echocardiogram showed LVEF of 35%. On arrival to the ER her vital signs within normal limits. Laboratory analysis was remarkable for white blood cell count of 14.1, glucose 124, magnesium 2.4, AST 45, ALT 39, and elevated troponin at 14.1. With concerns for her elevated troponin and symptoms she is admitted for further monitoring. Continue elevating troponins she return to the labor arbitrator hearing office and her second was found to be patent. She continued to improve and therefore was determined stable for discharge home. She is having significant anxiety during the day. We discussed a short course of Ativan to help with this, states when her and her daughter that this is not a long-term solution and should she need it greater than 4 weeks she would benefit more from long-term antibiotic anxiety medications and benzodiazepines. During this time she will work on therapy, yoga, and breathing techniques. She was also found to have a elevated triglyceride and Zetia was added to her statin therapy. She will take a 2 week course of probiotics. Follow-up: New medications include Ativan, dapaglifozin, lactobacillus, and zetia She'll follow up with Dr. Katz tomorrow as was already scheduled. She also has a new patient appointment with Dr. Stevens next week. Patient seen and examined at bedside. Diarrhea resolved, improving anxiety, no chest pain or shortness of breath Vital signs reviewed and stable. General: nontoxic, no distress, appears at stated age Derm: warm, dry Head: atraumatic, normocephalic, symmetric Eyes: EOMI, no lid lag, anicteric sclera Mouth: no lip lesion, mucus membranes moist Cardiovascular: S1S2 reg, no murmur, positive posterior tibial pulse bilateral, Lungs: CTA bilateral, no rhonchi, no rales , no accessory muscle use Abdominal: soft, nontender to palpation, no guarding, no appreciable organomegaly Ext: no gross muscle atrophy, no edema, no contractures Neuro: CN II-XI grossly intact, no focal neuro deficits Psych: Alert, oriented, appropriate affect A total of 27 minutes of time were spent preparing this complex discharge summary. Patient was discharged on 03/21/22. Patient Condition at Discharge: Stable Plan - Discharge Summary Discharge Rx Participant: No New Discharge Prescriptions: New LORazepam [Ativan] 0.5 mg PO TID 3 Days #15 tab Dapagliflozin Propanediol [Farxiga] 10 mg PO DAILY #30 tab Lactobacillus Acidophilus [Acidophilus Probiotic] 1 each PO AC-BID #60 capsule Ezetimibe [Zetia] 10 mg PO DAILY #30 tab Continue Metoprolol Tartrate [Lopressor] 25 mg PO BID #60 tab Nitroglycerin Sl Tabs [Nitrostat] 0.4 mg SUBLINGUAL Q5M PRN #15 tab PRN Reason: Chest Pain Ondansetron [Zofran] 4 mg PO Q6H PRN #28 tab PRN Reason: Nausea Aspirin 81 mg PO DAILY #30 tab Ticagrelor [Brilinta] 90 mg PO BID #60 tab Losartan [Cozaar] 12.5 mg PO DAILY #15 tab Atorvastatin [Lipitor] 20 mg PO HS #30 tab Discontinued amLODIPine [Norvasc] 5 mg PO DAILY #30 tab Discharge Medication List Aspirin 81 mg PO DAILY #30 tab 03/17/22 [Rx] Atorvastatin [Lipitor] 20 mg PO HS #30 tab 03/17/22 [Rx] Losartan [Cozaar] 12.5 mg PO DAILY #15 tab 03/17/22 [Rx] Metoprolol Tartrate [Lopressor] 25 mg PO BID #60 tab 03/17/22 [Rx] Nitroglycerin Sl Tabs [Nitrostat] 0.4 mg SUBLINGUAL Q5M PRN #15 tab 03/17/22 [Rx] Ondansetron [Zofran] 4 mg PO Q6H PRN #28 tab 03/17/22 [Rx] Ticagrelor [Brilinta] 90 mg PO BID #60 tab 03/17/22 [Rx] Dapagliflozin Propanediol [Farxiga] 10 mg PO DAILY #30 tab 03/21/22 [Rx] Ezetimibe [Zetia] 10 mg PO DAILY #30 tab 03/21/22 [Rx] LORazepam [Ativan] 0.5 mg PO TID 3 Days #15 tab 03/21/22 [Rx] Lactobacillus Acidophilus [Acidophilus Probiotic] 1 each PO AC-BID #60 capsule 03/21/22 [Rx] Follow up Appointment(s)/Referral(s): Jose Juan Katz MD [STAFF PHYSICIAN] - 03/22/22 10:30 am None,Stated [REFERRING] - 1-2 days Patient Instructions/Handouts: *Surgery [facility] - After Heart Catheterization - Dextrine Mixer Instructions Activity/Diet/Wound Care/Special Instructions: Activity: as tolerated Diet: heart healthy Special Instructions: Take medications as prescribed Remember Ativan can be addictive and should only be sure for a short duration. Use Yoga and breathing exercises to control anxiety Discharge Disposition: HOME SELF-CARE
== END 2022-03-21 11:06 | disposition home or self-care (01) ==
LOC: EC 14:29 → 6NMEDSUR 16:44 → 3SCARD 19:47
PROVIDERS: ADMIT Internal Medicine; ATTEND Internal Medicine
DX: I25.10 Atherosclerotic heart disease of native coronary artery without angina pectoris (principal); I10 Essential (primary) hypertension; D72.829 Elevated white blood cell count, unspecified; R74.01 Elevation of levels of liver transaminase levels; R19.7 Diarrhea, unspecified; Z91.14 Patient's other noncompliance with medication regimen; I42.8 Other cardiomyopathies; R00.0 Tachycardia, unspecified; E78.5 Hyperlipidemia, unspecified; Z95.5 Presence of coronary angioplasty implant and graft; F41.9 Anxiety disorder, unspecified; F17.210 Nicotine dependence, cigarettes, uncomplicated; G47.00 Insomnia, unspecified; I25.2 Old myocardial infarction; Z79.02 Long term (current) use of antithrombotics/antiplatelets; Z79.82 Long term (current) use of aspirin; Z79.899 Other long term (current) drug therapy
CPT/HCPCS: 96374; 96375; 99285; 36415; 94760 ×2; 93005; 93458; 84439; 84481; 80061; 80053; 80048; 83735 ×2; 84443; 84484; 85025 ×2; 85610; 85730; 83036; 71046; G0378 ×4; C1769; C1894; J2250; J2060; J2405; J2001; J1644; Q9967